=== PATIENT | male | born 1950 | race Caucasian/White ===

== ENCOUNTER 2021-02-05 08:00 | Inpatient (IN) | payer OTHER ==
[~2021-02-05] VITALS: Ht 172.7 cm; Wt 103.9 kg
[2021-02-05 08:30] LABS: Hematocrit 60.1 % (37.0-53.0); Hemoglobin 18.8 g/dL (13.5-17.5); Mean Corpuscular HGB 31.1 pg (26.0-34.0); Mean Corpuscular HGB Conc 31.3 g/dL (31.5-36.5); Mean Corpuscular Volume 100 fL (80-100); Mean Platelet Volume 11.6 fL (9.1-12.4); Platelet Count 271 K/mm3 (150-400); RDW Coefficient Variation 13.3 % (11.7-14.2); RDW Standard Deviation 49.6 fL (35.1-46.3); Red Blood Cell Count 6.04 M/mm3 (4.30-5.90); White Blood Cell Count 9.73 K/mm3 (4.00-11.30)
[2021-02-05] MEDS ORDERED: ALBU90OI INH (08:52)
[2021-02-05] MEDS ORDERED: ELIQUIS5 M2 PO (08:53)
[2021-02-05] MEDS ORDERED: ERGO400 PO (08:53)
[2021-02-05] MEDS ORDERED: GUAI600T33 PO (08:54)
[2021-02-05] MEDS ORDERED: JARDIANCE25 MG PO (08:54)
[2021-02-05] MEDS ORDERED: Lisinopril-Hct1 EAC4 PO (08:55)
[2021-02-05] MEDS ORDERED: METF500 PO (08:55)
[2021-02-05] MEDS ORDERED: METO25ER PO (08:56)
[2021-02-05 08:57] LABS: Alanine Aminotransfer (ALT/SGP 22 U/L (12-78); Albumin, Blood 3.3 g/dL (3.4-5.0); Albumin/Globulin Ratio 0.6 (0.8-1.8); Alk Phos 67 U/L (50-136); Anion Gap 6 mmol/L (6-16); Aspartate Aminotrans (AST/SGOT 17 U/L (12-37); Bilirubin, Total 0.6 mg/dL (0.1-1.0); Blood Urea Nitrogen 28 mg/dL (8-24); Bun/Creatinine Ratio 33.2 (12.0-20.0); CO2, Blood 31 mmol/L (21-32); Calcium, Blood 9.8 mg/dL (8.5-10.1); Chloride, Blood 97 mmol/L (98-108); Creatinine, Blood 0.84 mg/dL (0.60-1.20); Globulin, Blood 5.1 g/dL (2.2-4.0); Glomerular Filtration Rate >60 (60-); Glucose, Blood 210 mg/dL (70-99); Potassium, Blood 4.3 mmol/L (3.5-5.5); Sodium, Blood 134 mmol/L (136-145); Total Protein, Blood 8.4 g/dL (6.4-8.2); Troponin I <0.015 ng/mL (0.000-0.040)
[2021-02-05] MEDS ORDERED: DULERA 100 MCG/13 GM INH (08:57)
[2021-02-05] MEDS ORDERED: STRIVERDI RESPIM4 G1 INH (08:58)
[2021-02-05] MEDS ORDERED: ZOCOR20 MG PO (08:59)
[2021-02-05 09:04] LABS: BAND PERCENT MAN 13 % (0-8); BASOPHILS PERCENT MAN 0 % (0-2); EOSINOPHILS PERCENT MAN 0 % (0-6); LYMPHOCYTES ABSOLUTE MAN 1.45 K/mm3 (0.84-5.20); LYMPHOCYTES PERCENT MAN 15 % (21-46); MONOCYTES ABSOLUTE MAN 1.07 K/mm3 (0.16-1.47); MONOCYTES PERCENT MAN 11 % (4-13); SEG NEUTROPHILS PERCENT MAN 61 % (41-73); TOTAL CELLS COUNTED 100
[2021-02-05 09:16] LABS: PCO2 Arterial 99.2 mmHg (35-45); PO2 Arterial 80.9 mmHg (80-100); pH Blood Arterial 7.19 (7.35-7.45)
[2021-02-05 12:21] LABS: Source, Urine Catheter
[2021-02-05 12:36] LABS: PO2 Arterial 93.2 mmHg (80-100)
[2021-02-05 12:38] LABS: PCO2 Arterial 102 mmHg (35-45); pH Blood Arterial 7.13 (7.35-7.45)
[2021-02-05 12:42] LABS: Appearance, Urine Clear (Clear); Bilirubin, Urine Neg (Neg); Blood, Urine 2+ (Neg); Color, Urine Yellow (P-Yellow); Glucose Qualitative, Urine 4+ (Neg); Ketones, Urine Neg (Neg); Leukocyte Esterase, Urine Neg (Neg); Nitrite, Urine Neg (Neg); Protein, Urine 3+ (Neg); Urobilinogen, Urine NORM (Normal)
[2021-02-05 13:15] LABS: U Amphetamine Screen Not Detected; U Barbituate Screen Not Detected; U Benzodiazapine Screen Not Detected; U Buprenorphine Screen Not Detected; U Cannabinoids Screen Not Detected; U Cocaine Screen Not Detected; U Methadone Screen Not Detected; U Methamphetamine Screen Not Detected; U Opiates Screen Not Detected; U Oxycodone Screen Not Detected; U Phencyclidine Screen Not Detected; U Propoxyphene Screen Not Detected
[2021-02-05 13:19] LABS: White Blood Cells, Urine 0-2 /hpf (0-5)
[2021-02-05 13:20] LABS: Bacteria Rare /hpf; Squamous Epithelial Cells Rare /hpf (Few)
--- NOTE | 2021-02-05 13:56 | NUR ---
PT ADMITTED TO ICU FROM ER AT 1148 FOR RESP FAILURE. PT ARRIVED MOANING AND RESTLESS WITH EYES CLOSED. BIPAP ON 07/04, FIO2 90%. PT ABLE TO FOLLOW SIMPLE COMMANDS BUT VERY AGITATED, STATING "I CANT BREATH". LARGE AIR LEAK TO BIPAP MASK. ATIVAN 1MG GIVEN W GOOD RESULTS. MASK REAJUSTED. PT ARRIVED IN AFIB RVR W HEART RATE 110-160. BP STABLE. CARDIZEM GTT PLACED AT 10MG/HR. PT UNABLE TO URINATE. ORDERS OBTAINED FOR BROWNE CATH. 16F BROWNE TEMP PROBE PLACED W/O DIFF, UA SENT. DR STANLEY CONSULTED AND WAS AT BEDSIDE SHORTLY AFTER ADMISSION. PRECEDEX ORDERED AND ON STANDBY; PT HASNT REQUIRED EXTRA SEDATION SINCE ATIVAN. LOPRESSOR 2.5MG IV GIVEN TWICE PER DR STANLEY W SMALL EFFECT. HR 110-130, OCC HIGHER. BP REMAINED STABLE AFTER LOPRESSOR. NITRO PATCH REMOVED PER DR STANLEY. CARDIZEM STOPPED PER DR STANLEY AT 1234. DR STANLEY INCREASED PRESSURE TO 18. DR STANLEY NOTIFIED OF CRITICAL PH AND CO2. VBG TO BE REPEATED AT 1500. STAT ECHO BEING COMPLETED NOW.
--- NOTE | 2021-02-05 14:21 | NUR ---
Echocardiogram completed.
[2021-02-05 15:21] LABS: PCO2 Venous > 105 mmHg (38-42); PO2 Venous 46.9 mmHg (38-42); pH Blood Venous 7.12 (7.34-7.37)
[2021-02-05 15:22] LABS: Base Excess Venous 8.2 mmol/L; Bicarbonate Venous 25.7 mmol/L (24.0-30.0)
[2021-02-05 16:37] LABS: Adenovirus Not Detected (NOT DETECT); Coronavirus 229E Not Detected (NOT DETECT); Coronavirus HKU1 Not Detected (NOT DETECT); Coronavirus NL63 Not Detected (NOT DETECT); Coronavirus OC43 Not Detected (NOT DETECT); Human Metapneumovirus Not Detected (NOT DETECT); Human Rhinovirus/Enterovirus Detected (NOT DETECT); Influenza A/H1 Not Detected (NOT DETECT); SARS-Cov-2 (COVID-19), BioFire Not Detected (NOT DETECT)
[2021-02-05 16:38] LABS: Bordetella pertussis Not Detected (NOT DETECT); Chlamydophila pneumoniae Not Detected (NOT DETECT); Influenza A/2009-H1 Not Detected (NOT DETECT); Influenza A/H3 Not Detected (NOT DETECT); Influenza B Not Detected (NOT DETECT); Mycoplasma pneumoniae Not Detected (NOT DETECT); Parainfluenza Virus 1 Not Detected (NOT DETECT); Parainfluenza Virus 2 Not Detected (NOT DETECT); Parainfluenza Virus 3 Not Detected (NOT DETECT); Parainfluenza Virus 4 Not Detected (NOT DETECT); Respiratory Syncytial Virus Not Detected (NOT DETECT)
--- NOTE | 2021-02-05 17:48 | NUR ---
1500 VBG W CRITICAL PH OF 7.12. PT INTUBATED BY DR STANLEY AT 1538, 8.0 26 AT LOWER LIP. ETOMIDATE AND PARKER USED TO INTUBATE. PT'S PRESSURE DROPPED AFTER INTUBATION, NS BOLUS STARTED ALONG WITH A PUSH OF PHENYLEPHRINE 50MCG GIVEN AT 1546 FOLLOWED BY 100MCG AT [address] STANLEY. A SECOND BOLUS OF NS WAS STARTED AT 1640. FLUIDS TO BE TKO AFTER BOLUS COMPLETE. A SECOND DOSE OF PARKER 20 WAS GIVEN POST INTUBATION FOR ASYNCHRONY W VENT PER DR STANLEY. PROPOFOL WAS STARTED AT 20MCG AT 1616 FOR SAME ISSUE. LEVOPHED WAS STARTED AT 1601 AND QUICKLY TITRATED UP TO 15MCG FOR MAP <65. LEVOPHED NOW AT 17MCG. VASOPRESSIN STARTED AT 0.04UNITS. AMIO BOULUS FOLLOWED BY GTT STARTED FOR AFIB W RATE UP TO 165. AMIO NOW AT 1MG/MIN. DR STANLEY STARTED A CENTRAL LINE AT 1645. OG PLACED. CHEST XRAY CONFIRMED ETT AND OG PLACEMENT. OG PLACED TO LIS FOR DISTENSION. PT'S BROUGHT IN AND WAS UPDATED. NEOSYNEPHRINE ORDERED AND IS AVAILABLE BUT HAS NOT BEEN STARTED.
--- NOTE | 2021-02-05 19:00 | NUR ---
ASSUMED CARE OF PT, BEDSIDE REPORT RECEIVED. PT IS NOTED INTUBATED AND SEDATED, VENT SETTINGS ARE AC/PC 16/24, FIO2 100%, PEEP 5.0, ETT 8.0 26 AT THE LIP, LUNGS HAVE CRACKLES AUDIBLE THROUGHOUT WITH DIM BASES BILAT, COPIOUS THICK CLANCY SPUTUM HAS BEEN SUCTIONED FROM ETT, SATS ARE NOTED 100%, RESP RATE 16/MIN, TIDAL VOLUMES MID TO UPPER 300S AT THIS TIME, PER RT, REPEAT VBG IS ORDERED FOR 1999. AFIB/AFLUTTER NOTED ON MONITOR RATES UP TO 130S, AMIODARONE GTT IS NOTED AT 1 MG/MIN, PRESSURES SOFT, MAP MAINTAINING WITH LEVOPHED AT 20 MCG/MIN AND VASOPRESSIN AT 0.04 UNITS/MIN, PROPOFOL AT 20 MCG/KG/MIN, PERIPHERAL PULSES ARE FAINT, CAP REFILL DELAYED, NO EDEMA NOTED AT THIS TIME. ABD DISTENDED, HYPOACTIVE BOWEL TONES X 4 QUADRANTS, SOFT TO PALPATION, OG IN PLACE TO LOW INTERMITTENT SUCTION, SCANT AMOUNTS OF CLEAR GREEN IN SUCTION TUBING, NONE NOTED IN CANNISTER AT THIS TIME. TEMP PROBE BROWNE IN PLACE DRAINING CLEAR DARK YELLOW URINE TO GRAVITY. CENTRAL LINE ACCESS TO RIGHT GROIN, DRESSING CDI, SITE WNL, PERIPHERAL ACCESS TO LEFT HAND AND RIGHT AC, SITES WNL, DRESSINGS CDI, ALL VASCULAR ACCESS FLUSHES WELL AT THIS TIME.
[2021-02-05 22:35] LABS: Base Excess Venous 4.6 mmol/L; Bicarbonate Venous 24.5 mmol/L (24.0-30.0); PCO2 Venous 93.2 mmHg (38-42); PO2 Venous 58.5 mmHg (38-42); pH Blood Venous 7.16 (7.34-7.37)
[2021-02-06 04:07] LABS: BASOPHILS ABSOLUTE AUTO 0.09 K/mm3 (0.00-0.23); BASOPHILS PERCENT AUTO 1 % (0-2); Hematocrit 53.7 % (37.0-53.0); Hemoglobin 16.6 g/dL (13.5-17.5); LYMPHOCYTES ABSOLUTE AUTO 0.73 K/mm3 (0.84-5.20); LYMPHOCYTES PERCENT AUTO 6 % (21-46); MONOCYTES ABSOLUTE AUTO 1.43 K/mm3 (0.16-1.47); MONOCYTES PERCENT AUTO 12 % (4-13); Mean Corpuscular HGB 30.9 pg (26.0-34.0); Mean Corpuscular HGB Conc 30.9 g/dL (31.5-36.5); Mean Corpuscular Volume 100 fL (80-100); Mean Platelet Volume 11.6 fL (9.1-12.4); Platelet Count 269 K/mm3 (150-400); RDW Coefficient Variation 13.2 % (11.7-14.2); RDW Standard Deviation 49.3 fL (35.1-46.3); Red Blood Cell Count 5.38 M/mm3 (4.30-5.90); White Blood Cell Count 11.78 K/mm3 (4.00-11.30)
[2021-02-06 04:08] LABS: EOSINOPHILS PERCENT AUTO 0 % (0-6); IMMATURE GRAN ABSOLUTE AUTO 0.12 K/mm3 (0.00-0.10); IMMATURE GRAN PERCENT AUTO 1 % (0-1); NEUTROPHILS ABSOLUTE AUTO 9.41 K/mm3 (1.96-9.15); NEUTROPHILS PERCENT AUTO 80 % (41-73)
[2021-02-06 04:31] LABS: Alanine Aminotransfer (ALT/SGP 21 U/L (12-78); Albumin, Blood 2.5 g/dL (3.4-5.0); Albumin/Globulin Ratio 0.6 (0.8-1.8); Alk Phos 54 U/L (50-136); Anion Gap 6 mmol/L (6-16); Aspartate Aminotrans (AST/SGOT 9 U/L (12-37); Bilirubin, Total 0.4 mg/dL (0.1-1.0); Blood Urea Nitrogen 34 mg/dL (8-24); Bun/Creatinine Ratio 34.1 (12.0-20.0); CO2, Blood 32 mmol/L (21-32); Calcium, Blood 8.4 mg/dL (8.5-10.1); Chloride, Blood 101 mmol/L (98-108); Globulin, Blood 4.2 g/dL (2.2-4.0); Glomerular Filtration Rate >60 (60-); Glucose, Blood 229 mg/dL (70-99); Magnesium, Blood 2.5 mg/dL (1.6-2.4); Phosphorus, Blood 3.9 mg/dL (2.5-4.9); Potassium, Blood 4.5 mmol/L (3.5-5.5); Sodium, Blood 139 mmol/L (136-145); Total Protein, Blood 6.7 g/dL (6.4-8.2)
--- NOTE | 2021-02-06 06:41 | NUR ---
PT REMAINS SEDATED AND INTUBATED, FIO2 TITRATED DOWN TO 60% THIS SHIFT VENT SETTINGS OTHERWISE REMAIN UNCHANGED FROM HS ASSESSMENT. LUNGS CONTINUE TO HAVE CRACKLES THROUGHOUT, COPIOUS SECRETIONS CONTINUE FROM ETT. SATS MAINTAINING UPPER 90S AT THIS TIME, RESP RATE 16. PRESSOR REQUIREMENTS INITIALLY INCREASED THIS SHIFT REQUIRING ADDITION OF MARY GRACE-SYNEPHRINE AT 20 MCG/MIN TO LEVOPHED 20 MCG/MIN AND VASOPRESSIN 0.04 UNITS/MIN, SBP INCREASED TO 110-120S AND FIRST ATTEMPT TO TITRATE MARY GRACE-SYNEPHRINE DOWN TO 10 MCG/MIN DROPPED PRESSURE TO 60S SYSTOLIC, DISCUSSED WITH DR STANLEY AND OK TO RUN SBP 110S THIS SHIFT. WAS ABLE TO TITRATE MARY GRACE TO OFF AND LEVOPHED DOWN TO 14 MCG/MIN THIS SHIFT WITH PRESSURES MAINTAINING OF THIS TIME. PT OPENED EYES AND SAT UP IN BED PULLING HARD AGAINST WRIST RESTRAINTS AND REACHING FOR ETT NEAR 0600 THIS AM AND PROPOFOL WAS INCREASED TO 40 MCG/KG/MIN. AMIODARONE GTT DECREASED TO 0.5 MG/MIN AND INFUSION PUMP PROGRAMMED FOR 18 HOURS RATE HAS IMPROVED TO 90S OF THIS TIME. ABD REMAINS DISTENDED, HYPOACTIVE BOWEL TONES CONTINUE, OG TO LIS WITH SCANT AMOUNT OF GREEN LIQUID DRAINAGE IN CANNISTER. TEMP PROBE BROWNE REMAINS IN PLACE DRAINING CLEAR DARK YELLOW URINE TO GRAVITY.
[2021-02-06 08:15] LABS: Base Excess Venous 9.1 mmol/L; Bicarbonate Venous 29.3 mmol/L (24.0-30.0); PCO2 Venous 73.8 mmHg (38-42); PO2 Venous 62.3 mmHg (38-42); pH Blood Venous 7.29 (7.34-7.37)
--- NOTE | 2021-02-06 10:46 | NUR ---
CARE ASSUMED AT 0700. PT SEDATED ON PROPOFOL AT 40MCG FOR MECH VENT. COPIOUS AMTS OF WHITE THICK SPUTUM SUCTIONED FROM ETT. BICARB GTT AT 50CC/HR, LEVOPHED AT 14MCG, TITRATED DOWN TO 10MCG. MAP >65. VASOPRESSIN INFUSING. NEOSYNEPHRINE HAS BEEN ON STANDBY. AMIO INFUSING AT 05MG/MIN. PT IN AFIB W RVR, RATE SLOWER THAN YESTERDAY AT 110-130. TOPROL XL HELD IT CAN NOT BE CRUSHED AND PT IS ON PRESSORS; WILL DISCUSS W . LACTIC ACID 2.8 AND GRAM + BACILLI RESULTS GIVEN TO DR DALTON. PT'S GIVEN UPDATE OVER PHONE.
--- NOTE | 2021-02-06 11:13 | NUR ---
DR STANLEY IN TO SEE PT. BICARB GTT DC'D. FIO2 AT 45%, VASOPRESSIN PLACED ON STANDBY. TOPROL XL TO BE DC'D.
--- NOTE | 2021-02-06 12:24 | NUR ---
PT WOKE UP VERY AGITATED, UNABLE TO CALM OR REDIRECT. PT PULLING TOWARDS ETT STRONGLY AND STACKING ON VENT, HR INCREASED TO 150, BP DROPPED TO 54/43. VASOPRESSIN RESTARTED, LEVOPHED INCREASED TO 16MCG. FENT 100MCG GIVEN.
--- NOTE | 2021-02-06 13:06 | NUR ---
DR STANLEY UPDATED. LEVOPHED DECREASED TO 10MCG.
--- NOTE | 2021-02-06 13:41 | NUR ---
VHP TUBE FEEDING STARTED AT 25CC/HR, WHICH IS GOAL RATE. VASOPRESSIN ON STANDBY, LEVOPHED AT 10MCG. HR HAS DECREASED TO 90-130.
--- NOTE | 2021-02-06 14:54 | NUR ---
PT'S (S/O >30YEARS) AT BEDSIDE AND UPDATED BY MYSELF AND BY DR STANLEY. LEVOPHED INCREASED TO 12MCG.
[2021-02-06 16:10] LABS: Vancomycin, Trough 13.1 ug/mL (5.0-10.0)
--- NOTE | 2021-02-06 16:36 | NUR ---
METOPROLOL 12.5MG GIVEN PT FOR HEART RATE 130-160. LEVOPHED AT 12MCG, MAP >65. AMIO GTT COMPLETE AND STOPPED PER DR STANLEY. FENTANYL GIVEN FOR AGITATION, PULLING TOWARD ETT.
--- NOTE | 2021-02-06 19:15 | NUR ---
ASSUMED CARE OF PT, BEDSIDE REPORT RECEIVED. GTTS REVIEWED WITH OFFGOING RN, LEVOPHED AT 10 MCG/MIN, PROPOFOL AT 50 MCG/KG/MIN, AND NS @ TKO, VASOPRESSIN AND MARY GRACE-SYNEPHRINE HAVE BEEN ON STANDBY FOR MOST OF THE DAY PER OFFGOING RN. VENT SETTINGS ARE NOW NOTED AC/PC 16, 20, FIO2 45%, PEEP 5, ETT CONTINUES 26 AT THE LIP, SATS ARE 95% AT THIS TIME, RESP RATE 16/MIN TIDAL VOLUMES ARE MID TO UPPER 400S CURRENTLY. AFIB CONTINUES ON MONITOR, OCCASIONAL PVC IS NOTED, PRESSURES MAINTAINING MAP WITH PREV LISTED PRESSORS, SKIN IS NOW PINK AND WARM, CAP REFILL 4 SECONDS AT THIS TIME, PULSES ARE FAINTLY PALPABLE X 4. ABD DISTENDED, VITAL HIGH PROTEIN INFUSING AT 25 ML/HR WHICH IS GOAL RATE, RESIDUAL IS LESS THAN 5 ML AT THIS TIME, HYPOACTIVE BOWEL TONES CONTINUE, NO GRIMACING WITH PALPATION. TEMP PROBE BROWNE REMAINS IN PLACE DRAINING CLEAR DARK YELLOW URINE TO GRAVITY. CENTRAL LINE REMAINS IN PLACE TO RIGHT GROIN, DRESSING CDI, SITE WNL. PERIPHERAL ACCESS CONTINUES TO RIGHT AC AND LEFT HAND, SITES WNL, DRESSINGS CDI. FLUSH WELL.
--- NOTE | 2021-02-06 22:58 | NUR ---
CALL PLACED TO DR STANLEY DUE TO PT'S HEART RATE TRENDING UP, DISCUSSED PRESSOR REQUIREMENTS AND VITAL SIGNS AT THIS TIME. ORDERS RECEIVED. WILL MONITOR.
[2021-02-07 04:25] LABS: Base Excess Venous 13.1 mmol/L; Bicarbonate Venous 34.1 mmol/L (24.0-30.0); PO2 Venous 89.7 mmHg (38-42); pH Blood Venous 7.41 (7.34-7.37)
[2021-02-07 04:26] LABS: BASOPHILS ABSOLUTE AUTO 0.03 K/mm3 (0.00-0.23); BASOPHILS PERCENT AUTO 0 % (0-2); EOSINOPHILS PERCENT AUTO 0 % (0-6); Hematocrit 48.6 % (37.0-53.0); Hemoglobin 15.5 g/dL (13.5-17.5); IMMATURE GRAN ABSOLUTE AUTO 0.16 K/mm3 (0.00-0.10); IMMATURE GRAN PERCENT AUTO 1 % (0-1); LYMPHOCYTES ABSOLUTE AUTO 0.79 K/mm3 (0.84-5.20); LYMPHOCYTES PERCENT AUTO 7 % (21-46); MONOCYTES ABSOLUTE AUTO 0.79 K/mm3 (0.16-1.47); MONOCYTES PERCENT AUTO 7 % (4-13); Mean Corpuscular HGB 31.5 pg (26.0-34.0); Mean Corpuscular HGB Conc 31.9 g/dL (31.5-36.5); Mean Corpuscular Volume 99 fL (80-100); Mean Platelet Volume 11.6 fL (9.1-12.4); NEUTROPHILS ABSOLUTE AUTO 9.73 K/mm3 (1.96-9.15); NEUTROPHILS PERCENT AUTO 85 % (41-73); NRBC ABSOLUTE 0.02 K/mm3 (0.00-0.02); NRBC Auto 0.2 /100 WBC (0.0-0.2); Platelet Count 221 K/mm3 (150-400); RDW Coefficient Variation 13.5 % (11.7-14.2); RDW Standard Deviation 49.4 fL (35.1-46.3); Red Blood Cell Count 4.92 M/mm3 (4.30-5.90)
[2021-02-07 04:45] LABS: Anion Gap 2 mmol/L (6-16); Blood Urea Nitrogen 33 mg/dL (8-24); CO2, Blood 35 mmol/L (21-32); Calcium, Blood 8.6 mg/dL (8.5-10.1); Chloride, Blood 103 mmol/L (98-108); Creatinine, Blood 0.77 mg/dL (0.60-1.20); Glomerular Filtration Rate >60 (60-); Glucose, Blood 224 mg/dL (70-99); Magnesium, Blood 2.8 mg/dL (1.6-2.4); Potassium, Blood 4.3 mmol/L (3.5-5.5); Sodium, Blood 140 mmol/L (136-145)
--- NOTE | 2021-02-07 06:14 | NUR ---
PT APPEARS TO REST QUIETLY WHEN UNDISTURBED THIS SHIFT, DOES ROUSE TO VERBAL STIMULI, DOES ANSWER YES/NO QUESTIONS. VENT SETTINGS REMAIN UNCHANGED AND PT CONTINUES TO MAINTAIN OXYGEN SATS LOW TO MID 90S, RESP RATE AT REST REMAINS 16/MIN WITH TIDAL VOLUMES 400S. LUNGS CONTINUE WITH CRACKLES AND INTERMITTENT WHEEZES. HE CONTINUES IN AFIB/AFLUTTER THROUGHOUT NOC WITH RATES UP TO 140S, DISCUSSED WITH DR STANLEY EARLY IN THE SHIFT AND OBTAINED ORDERS FOR ONE TIME DOSE OF METOPROLOL VIA OG TUBE WELL METOPROLOL 2.5 MG IV Q 4HOURS PRN, RATES ARE NOTED TO IMPROVE FOR BRIEF DURATION FOLLOWING EACH DOSE HOWEVER DO NOT MAINTAIN, THIS IS DISCUSSED WITH DR STANLEY THIS AM AND ORDERS OBTAINED TO RESUME AMIODARONE GTT AT 0.5 MG/MIN, PHARMACY CONTACTED FOR NEW BAG. MINIMAL RESIDUALS THROUGHOUT SHIFT, BOWEL TONES IMPROVED HOWEVER REMAIN HYPOACTIVE. GOOD URINE OUTPUT VIA TEMP PROBE BROWNE. PRESSOR REQUIREMENTS IMPROVED AND LEVOPHED HAS BEEN TITRATED DOWN TO 2 MCG/MIN, PROPOFOL TITRATED UP TO 60 MCG/KG/MIN AT 0545 THIS AM DUE TO CONCERN FOR POSSIBLE ANXIETY COMPONENT CONTRIBUTING TO ELEVATED HEART RATE, APPROXIMATELY 10 BEATS/MIN IMPROVEMENT NOTED.
--- NOTE | 2021-02-07 07:18 | NUR ---
ASSUMED CARE: PT INTUBATED WITH SETTINGS AC 16/PC 20/5/45%. AMIODORONE GTT STARTED AT THE END OF SUBWAY GUARD WITH HR CURRENTLY IN 130S. LEVOPHED AT 2 MCG/KG. PROPOFOL FOR SEDATION AT 60MCG/KG AT THIS TIME. RT AT BEDSIDE FOR BREATHING TX. OG WITH TF RUNNING AND BROWNE IN PLACE PUTTING OUT CLEAR YELLOW URINE. NO ACUTE NEEDS AT THIS TIME
--- NOTE | 2021-02-07 09:58 | NUR ---
AMIODORONE WAS STARTED AT 0700 THIS AM AND DOSE OF PRN METOPROLOL WAS GIVEN AT 0930. PT'S HR STILL IN 130S-150S. SPOKE WITH DR STANLEY WHO WILL EVALUATE TO DETERMINE FURTHER INTERVENTION
--- NOTE | 2021-02-07 10:30 | NUR ---
PROPOFOL DOWN TO 30MCG/KG. PT ABLE TO OPEN EYES AND ATTEMPTING TO FOLLOW DIRECTIONS. BEGAN GETTING AGITATED AND CHEWING ET TUBE. SEDATION INCREASED TO 40MCG/KG
--- NOTE | 2021-02-07 10:30 | NUR ---
DR STANLEY AT BEDSIDE AND ORDERED AMIODORONE OFF AND TO GIVE IV PUSH OF METOPROLOL. DR WILL ENTER FURTHER ORDERS FOR PO COVERAGE FOR HR. WILL MONITOR CLOSELY
--- NOTE | 2021-02-07 12:34 | NUR ---
DIETITIAN SUGGESTED STARTING PRECEDEX TO TITRATE OFF OF PROPOFOL DUE TO INCREASED CALORIC INTAKE FOR PT. DISCUSSED WITH DR STANLEY TO SEE IF WE WANTED TO CONSIDER THIS. DR STANLEY STATES TO ADD PRECEDEX TO SEE IF WE CAN TITRATE PROPOFOL DOWN. AWAITING MED FROM PHARMACY
--- NOTE | 2021-02-07 18:32 | NUR ---
SHIFT SUMMARY: PT REMAINS INTUBATED WITH SETTINGS UNCHANGED. SEDATED WITH PROPOFOL AT 30MCG AND PRECEDEX AT 0.6MCG. LEVOPHED OFF, PO METOPROLOL WITH HR IN 90S IN AFLUTTER. SON CAME TO SEE PT AND WISHES TO BE HERE WHEN PT IS EXTUBATED. PHONE NUMBER IN CHART. NO ACUTE NEEDS OR CONCERNS AT THIS TIME.
--- NOTE | 2021-02-07 20:00 | NUR ---
ASSESSMENT/ASSUMED CARE PT INTUBATED AND ON [facility] VENT. SEDATED WITH PROPOFOL AND PRECEDEX. PT PULLS AGAINST RESTRAINTS AND MOVES HEAD WITH MOUTH CARE AND REPOSITIONING BUT DOES NOT FOLLOW INSTRUCTIONS. LUNGS COARSE AND DECREASED. VENT SETTINGS AC/PC 16/20 PEEP 5 FIO2 45%. SUCTIONED MODERATE AMT THICK CREAM COLORED FLUID VIA ET TUBE. HEART RATE IRREGULAR- AFIB/AFLUTTER IN THE 90-100'S. BP STABLE WITH MAP GREATER THAN 65. BT+ HYPOACTIVE OG WITH TUBE FEED VITAL HP AT GOAL RATE 25 ML/HR, WATER 30 ML Q4HRS. RESIDUAL ZERO. PIV 20G TO RIGHT AC AND 20G TO LEFT FOREARM SALINE LOCKED, SITES CLEAR. CENTRAL LINE TO RIGHT GROIN DRSG INTACT, SITE CLEAR. PROPOFOL AT 30 MCQ/KG/MIN, PRECEDEX 0.6 MCQ/KG/HR, NS AT 10 ML/HR TIMES 2. LEVOPHED ON STANDBY. BROWNE CATH PATENT DRAINING CLEAR YELLOW URINE. ICE PACKS TO GROIN, UNDER ARMS AND BEHIND NECK FOR TEMP 101.7. TYLENOL GIVEN VIA OG WITH HS MEDS.
--- NOTE | 2021-02-07 22:22 | NUR ---
TEMP CALL TO DR STANLEY REGARDING TEMP 101.5 AFTER TYLENOL GIVEN, BLANKETS REMOVED AND ICE TO GROIN, UNDER ARMS AND BEHIND NECK. ORDER FOR MOTRIN 600 MG PT Q6HR PRN FOR TEMP OVER 101.0 RECEIVED.
[2021-02-08 04:42] LABS: BASOPHILS ABSOLUTE AUTO 0.06 K/mm3 (0.00-0.23); BASOPHILS PERCENT AUTO 0 % (0-2); EOSINOPHILS PERCENT AUTO 0 % (0-6); Hematocrit 50.4 % (37.0-53.0); Hemoglobin 15.5 g/dL (13.5-17.5); IMMATURE GRAN ABSOLUTE AUTO 0.26 K/mm3 (0.00-0.10); IMMATURE GRAN PERCENT AUTO 2 % (0-1); LYMPHOCYTES ABSOLUTE AUTO 1.24 K/mm3 (0.84-5.20); LYMPHOCYTES PERCENT AUTO 9 % (21-46); MONOCYTES ABSOLUTE AUTO 0.72 K/mm3 (0.16-1.47); MONOCYTES PERCENT AUTO 5 % (4-13); Mean Corpuscular HGB 30.7 pg (26.0-34.0); Mean Corpuscular HGB Conc 30.8 g/dL (31.5-36.5); Mean Corpuscular Volume 100 fL (80-100); Mean Platelet Volume 11.6 fL (9.1-12.4); NEUTROPHILS ABSOLUTE AUTO 11.09 K/mm3 (1.96-9.15); NEUTROPHILS PERCENT AUTO 83 % (41-73); Platelet Count 198 K/mm3 (150-400); RDW Coefficient Variation 13.6 % (11.7-14.2); RDW Standard Deviation 50.3 fL (35.1-46.3); Red Blood Cell Count 5.05 M/mm3 (4.30-5.90); White Blood Cell Count 13.37 K/mm3 (4.00-11.30)
[2021-02-08 05:13] LABS: Albumin, Blood 2.3 g/dL (3.4-5.0); Anion Gap 1 mmol/L (6-16); Blood Urea Nitrogen 43 mg/dL (8-24); Bun/Creatinine Ratio 49.9 (12.0-20.0); CO2, Blood 37 mmol/L (21-32); Calcium, Blood 8.6 mg/dL (8.5-10.1); Chloride, Blood 106 mmol/L (98-108); Creatinine, Blood 0.86 mg/dL (0.60-1.20); Glomerular Filtration Rate >60 (60-); Glucose, Blood 242 mg/dL (70-99); Magnesium, Blood 3.1 mg/dL (1.6-2.4); Phosphorus, Blood 3.7 mg/dL (2.5-4.9); Potassium, Blood 4.8 mmol/L (3.5-5.5); Sodium, Blood 144 mmol/L (136-145); Vancomycin, Trough 13.1 ug/mL (5.0-10.0)
--- NOTE | 2021-02-08 06:00 | NUR ---
SHIFT SUMMARY PT CONT INTUBATED AND ON [facility] VENT. CONT SEDATED WITH PROPOFOL AND PRECEDEX. PT AWAKENS TO TURNING AND ORAL CARE, NOT FOLLOWING INSTRUCTIONS. HEART RATE CONT IRREGULAR, AFIB/AFLUTTER IN THE 80'S. BP STABLE OFF LEVOPHED. TUBE FEED AT GOAL. BILAT SOFT WRIST RESTRAINTS ON. BED BATH DONE AND PT TURNED Q2HRS. NO ACUTE CHANGE, REPORT TO ON COMING NURSE
--- NOTE | 2021-02-08 12:18 | NUR ---
REASSESSMENT PT REMAINS INTUBATED AND SEDATED. HE HAD A WEANING TRIAL THIS MORNING AND HE TOELRATED SPONTANEOUS MODE AND REDUCED SEDATION FOR 2 HOURS. AFTER 2 HOURS PT'S RR WENT UP TO THE UPPER 30S AND HIS HR JUMPED TO THE 150S. RESPIRATORY CALLED AND SWITCHED PT BACK TO AC MODE. PRN DOSE OF METOPOROLOL GIVEN TO GET HR BACK DOWN. PT WAS FOLLOWING COMMANDS WHILE SEDATION WAS DECREASED, BUT APPROPRIATELY ANXIOUS. LUNGS ARE WHEEZY THIS AFTERNOON, WORSE ON THE R. AFIB WITH RATE IN THE 90-LOW 100S. BP STABLE. FEVER IS SLOWLY CLIMBING. DR. STANLEY GAVE ORDERS TO TITRATE OFF PRECEDEX TO SEE IF THAT HELPS. BROWNE WITH CL YELLOW URINE. SPOKE WITH PT'S CONY THIS MORNING AND PROVIDED UPDATE. CONTINUING TO MONITOR.
--- NOTE | 2021-02-08 18:34 | NUR ---
SHIFT SUMMARY PT REMAINED INTUBATED TODAY AFTER FIALING HIS WEAN AFTER 2 HOURS. HIS LUNGS ARE COARSE AND WHEEZY AT TIMES. AFIB, RATE IN THE 1TEENS SINCE PRECEDEX WAS TITRATED OFF. HIS FEVER IMPROVED BRIEFLY AFTER PRECEDEX TURNED OFF BUT IS CURRENTLY AT 100.2F. TOLERATING TUBE FEEDS WITH ONLY 20ML RESIDUAL THIS EVENING. PT'S CAME BY THIS AFTERNOON AND WAS UPDATED. CONTINUING TO MONITOR.
--- NOTE | 2021-02-08 20:10 | NUR ---
ASSESSMENT/ASSUMED CARE PT CONT INTUBATED AND [facility]. PT SEDATED WITH PROPOFOL AT 40 MCQ/KG/MIN VIA CENTRAL LINE TO RIGHT GROIN. VENT SETTINGS AC/PC 16/20 PEEP 5 FIO2 45%. LUNGS COARSE AND DECREASED IN THE BASES. RT SUCTIONED SMALL AMT YELLOW FLUID VIA ET TUBE. HEART RATE IRREGULAR, AFIB/AFLUTTER. AT 192 PT WENT INTO AFIB WITH RVR WITH RATE 130-160'S. PT MED WITH LOPRESSOR 2.5 IV AT 1936, BUT HEART RATE CONT ELEVATED. CALL TO DR STANLEY AT 1999 AND RECEIVED ADDITIONAL ORDERS FOR LOPRESSOR 5 MG IV AND LOPRESSOR 12.5 PT BOTH ONE TIME ORDRES, GIVEN AT 2006. HEART RATE CONT ELEVATED BUT DOWN TO 120-130'S. TEMP 100.4 PT MED WITH TYLENOL PT AND ICE PACKS APPLIED BEHIND NECK, UNDER ARMS AND IN GROIN. PT MED WITH FENTANYL 50 MCQ FOR SEDATION ADJUNCT. BT+ HYPOACTIVE. TUBE FEED VIA OG AT GOAL RATE OF 25 ML/HR WITH WATER 30 ML Q4HR. RESIDUAL 20 ML REFED. BROWNE CATH PATENT DRAINING YELLOW URINE. OARL CARE DONE AND PT REPOSITIONED.
--- NOTE | 2021-02-09 00:07 | NUR ---
REASSESSMENT BLOOD SURGAR 223, 6 UNITS REGULAR INSULIN GIVEN. TALKED WITH DR STANLEY REGARDING INCREASING HEART RATE 100-150'S. LOPRESSOR 50MG GIVEN VIA OG. PT MED WITH LOPRESSOR 2.5 MG IV. PT MOVING LEG AND TRYING TO GET OUT OF BED MED WITH FENTANYL 50 MCQ. CONT TO MONITOR HEART RATE AND BP.
[2021-02-09 03:22] LABS: BASOPHILS ABSOLUTE AUTO 0.05 K/mm3 (0.00-0.23); BASOPHILS PERCENT AUTO 0 % (0-2); EOSINOPHILS PERCENT AUTO 0 % (0-6); Hematocrit 51.5 % (37.0-53.0); Hemoglobin 15.8 g/dL (13.5-17.5); IMMATURE GRAN ABSOLUTE AUTO 0.24 K/mm3 (0.00-0.10); IMMATURE GRAN PERCENT AUTO 2 % (0-1); LYMPHOCYTES ABSOLUTE AUTO 0.72 K/mm3 (0.84-5.20); LYMPHOCYTES PERCENT AUTO 6 % (21-46); MONOCYTES ABSOLUTE AUTO 0.76 K/mm3 (0.16-1.47); MONOCYTES PERCENT AUTO 6 % (4-13); Mean Corpuscular HGB 30.6 pg (26.0-34.0); Mean Corpuscular HGB Conc 30.7 g/dL (31.5-36.5); Mean Corpuscular Volume 100 fL (80-100); Mean Platelet Volume 11.1 fL (9.1-12.4); NEUTROPHILS ABSOLUTE AUTO 10.59 K/mm3 (1.96-9.15); NEUTROPHILS PERCENT AUTO 86 % (41-73); Platelet Count 185 K/mm3 (150-400); RDW Coefficient Variation 13.6 % (11.7-14.2); RDW Standard Deviation 50.3 fL (35.1-46.3); Red Blood Cell Count 5.16 M/mm3 (4.30-5.90); White Blood Cell Count 12.36 K/mm3 (4.00-11.30)
[2021-02-09 03:41] LABS: Magnesium, Blood 2.7 mg/dL (1.6-2.4); Phosphorus, Blood 3.4 mg/dL (2.5-4.9)
--- NOTE | 2021-02-09 05:47 | NUR ---
SHIFT SUMMARY PT CONT INTUBATED AND ON [facility] VENT. NO CHANGES TO VENT DURING THE NIGHT. CURRENT SETTINGS AC/PC 16/20 PEEP 5 FIO2 45%. WEANING HELD THIS MORNING DUE TO ELEVATED HEART RATE. PT MED WITH IV LOPRESSOR FOUR TIMES DURING THE NIGHT AND RECEIVED AN EXTRA DOSE OF PT LOPRESSOR. DR STANLEY INCREASED PT LOPRESSOR TO 50 MG Q8HR. PT CONT AFIB/AFLUTTER 90-120'S AT THIS TIME. BP STABLE. TUBE FEED AT GOAL, MIN RESIDUAL DURING THE NIGHT. CENTRAL LINE TO RIGHT GROIN STABLE. PT TURNED Q2HRS. REPORT TO ON COMING NURSE
[2021-02-09 07:46] LABS: Anion Gap 1 mmol/L (6-16); Blood Urea Nitrogen 38 mg/dL (8-24); Bun/Creatinine Ratio 52.9 (12.0-20.0); CO2, Blood 35 mmol/L (21-32); Calcium, Blood 8.8 mg/dL (8.5-10.1); Chloride, Blood 108 mmol/L (98-108); Creatinine, Blood 0.72 mg/dL (0.60-1.20); Glomerular Filtration Rate >60 (60-); Glucose, Blood 211 mg/dL (70-99); Potassium, Blood 4.8 mmol/L (3.5-5.5); Sodium, Blood 144 mmol/L (136-145)
--- NOTE | 2021-02-09 10:07 | NUR ---
ASSUMED CARE BEDSIDE REPORT RECIEVED. PT IS INTUBATED AND SEDATED. VENT SETTINGS PRESSURE CONTROL 20, RATE 16, PEEP 5, FIO2 45%. PT SEDATED WITH PROPOFOL. PROPOFOL DECREASED TO 20 MCG/KG/MIN. PT OPENS EYES TO VERBAL STIMULI. PT WILL SQUEEZE HANDS UPON COMMAND. SHAKES HEAD YES/NO TO QUESTIONS. PT IS ANXIOUS/RESTLESS. HR AFIB, INCREASED TO 140-160'S WITH RESTLESSNESS. OGT IN PLACE WITH TF AT GOAL RATE. BROWNE TEMP PROBE IN PLACE WITH DARK YELLOW URINE OUTPUT NOTED. SBW RESTRAINTS IN PLACE. DR BARFIELD AND DR DALTON AT BEDSIDE. PLAN TO WEAN PT OFF PROPOFOL AND RESTART PRECEDEX. PT DID NOT TOLERATE SBT FOR LONG. PT BACK TO PRESSURE CONTROL AT THIS TIME. PT SPOUSE TREY UPDATED VIA PHONE. VITAL SIGNS STABLE. WILL CONTINUE TO MONITOR.
--- NOTE | 2021-02-09 17:21 | NUR ---
SHIFT SUMMARY NO ACUTE CHANGES THIS SHIFT. PT REMAINS INTUBATED AND SEDATED. PT VENT SETTINGS UNCHANGED. PRESSURE CONTROL 20/5, RR 16, FIO2 40%. PT WITH LARGE AMOUNT OF THICK ORAL AND ETT SECRETIONS THIS SHIFT. PT SEDATED WITH PROPOFOL AT 25 MCG/KG/MIN AND PRECEDEX AT 1.0 MCG/KG/MIN. WHEN PT LESS SEDATED, PT IS ABLE TO FOLLOW SIMPLE COMMANDS AND NOD HEAD YES/NO. VITAL SIGNS STABLE AT THIS TIME. PT REMAINS IN AFIB. PT WITH TEMP UP TO 101.8. PT MED WITH TYLENOL AND MOTRIN. OGT REMAINS IN PLACE WITH TF CHANGED TO PIVIOT 1.5, INFUSING AT 35 ML/HR AT THIS TIME. BROWNE TEMP PROBE REMAINS IN PLACE WITH YELLOW URINE OUTPUT NOTED. SBW RESTRAINTS REMAIN IN PLACE. PT SPOUSE AT BEDSIDE THIS AFTERNOON. UPDATED TO CURRENT CONDITION AND PLAN OF CARE. WILL CONTINUE TO MONITOR AND REPORT OFF TO ONCOMING RN.
--- NOTE | 2021-02-09 22:07 | NUR ---
PT RECEIVED FROM LUNA NAYAK. TEMPERATURE REGISTERING 102.4, TYLENOL GIVEN PER OGT ICE PACKS PLACED ON GROIN, ARMPITS, NECK. ON VENT. AC/PC 16 PEEP 5 40% FIO2 TOLERATING WELL, PROPOFOL AT 25MCG/KG/HR, PRECEDEX @ 1.0, PIVOT TF @ 45ML/HR LUNGS COARSE IN THE BASES WITH EXP.WHEEZE LLL, PAS OFF AT THIS TIME R/T FEVER ABD ROUND FIRM RESIDUAL 180ML. EXTREMITIES COOL TO THE TOUCH, FOREHEAD SWEATY PT LOOKS COMFORTABLE, NO GRIMACE, NO COUGH. HEART RATE 90'S, BP STABLE, SATS >93% RESTRAINTS ON BOTH WRISTS
--- NOTE | 2021-02-10 03:33 | NUR ---
LAVINIA HAS BEEN RESTING QUIETLY T/O THE NIGHT. BETWEEN MIDNOC AND 0200 HE HAD A COUPLE OF EPISODES WHERE HIS O2 SATS WOULD DROP TO THE MID-HI 80'S. HE WAS SUCTIONED AND DID NOT RETURN MUCH. HE WAS GIVEN 100% O2 AND WOULD RETURN TO BASELINE. AFTER A FEW OF THESE EPISODES, I TURNED HIS PROPOFOL UP TO 30MCG/KG AND HE HASN'T HAD ANOTHER.
[2021-02-10 04:48] LABS: BASOPHILS ABSOLUTE AUTO 0.04 K/mm3 (0.00-0.23); BASOPHILS PERCENT AUTO 0 % (0-2); EOSINOPHILS PERCENT AUTO 0 % (0-6); Hematocrit 53.2 % (37.0-53.0); Hemoglobin 16.6 g/dL (13.5-17.5); IMMATURE GRAN ABSOLUTE AUTO 0.22 K/mm3 (0.00-0.10); IMMATURE GRAN PERCENT AUTO 1 % (0-1); LYMPHOCYTES ABSOLUTE AUTO 1.37 K/mm3 (0.84-5.20); LYMPHOCYTES PERCENT AUTO 9 % (21-46); MONOCYTES ABSOLUTE AUTO 0.86 K/mm3 (0.16-1.47); MONOCYTES PERCENT AUTO 6 % (4-13); Mean Corpuscular HGB 30.8 pg (26.0-34.0); Mean Corpuscular HGB Conc 31.2 g/dL (31.5-36.5); Mean Corpuscular Volume 99 fL (80-100); Mean Platelet Volume 11.8 fL (9.1-12.4); NEUTROPHILS ABSOLUTE AUTO 12.76 K/mm3 (1.96-9.15); NEUTROPHILS PERCENT AUTO 84 % (41-73); Platelet Count 171 K/mm3 (150-400); RDW Coefficient Variation 13.6 % (11.7-14.2); RDW Standard Deviation 49.9 fL (35.1-46.3); Red Blood Cell Count 5.39 M/mm3 (4.30-5.90); White Blood Cell Count 15.25 K/mm3 (4.00-11.30)
[2021-02-10 05:05] LABS: Anion Gap 1 mmol/L (6-16); Blood Urea Nitrogen 39 mg/dL (8-24); Bun/Creatinine Ratio 52.6 (12.0-20.0); CO2, Blood 36 mmol/L (21-32); Calcium, Blood 8.3 mg/dL (8.5-10.1); Chloride, Blood 109 mmol/L (98-108); Creatinine, Blood 0.74 mg/dL (0.60-1.20); Glomerular Filtration Rate >60 (60-); Glucose, Blood 279 mg/dL (70-99); Potassium, Blood 4.7 mmol/L (3.5-5.5); Sodium, Blood 146 mmol/L (136-145)
--- NOTE | 2021-02-10 06:16 | NUR ---
LAVINIA HAS BEEN RESTING T/O THE NIGHT. NO CHANGE IN CONDITION. CONTINUES TO BE FEBRILE WITH LITTLE TO NO RELIEF WITH THE TYLENOL OR THE IBUPROFEN. ICE PACKS HAVE BEEN USED T/O THE NIGHT WELL. NO CHANGES TO THE VENT SETTINGS, PROPOFOL CONTINUES AT 30 MCG/KG/MIN AND PRECEDEX AT 1 MCG/KG/HR. TF @ 40ML/HR, BLOOD SUGARS HAVE INCREASED AND HIS AM GLUCOSE WAS 385, COVERED WITH 15UNITS OF REGULAR INSULIN. BROWNE WITH GOOD OUTPUT.
--- NOTE | 2021-02-10 07:30 | NUR ---
ASSUMED CARE BEDSIDE REPORT RECIEVED. PT IS INTUBATED AND SEDATED. VENT SETTINGS PRESSURE CONTROL 20/5, RR 16, FIO2 40%. PT WITH MINIMAL SECRETIONS AT THIS TIME. PT SEDATED WITH PROPOFOL AT 30 MCG/KG/MIN, AND PRECEDEX AT 1.0 MCG/KG/MIN. CENTRAL LINE TO RIGHT FEMORAL SITE C/D/I. OGT IN PLACE WITH TF INFUSING AT GOAL RATE. BROWNE TEMP PROBE IN PLACE WITH YELLOW OUTPUT NOTED. PT WITH 102.[address] SBW RESTRAINTS IN PLACE. VITAL SIGNS STABLE. WILL CONTINUE TO MONITOR.
--- NOTE | 2021-02-10 09:15 | NUR ---
VENT CHANGE DR BARFIELD AT BEDSIDE. DISCUSSED PRECEDEX AND PT PERSISTANT FEVER. PRECEDEX PLACED ON STANDBY. DR BARFIELD PLACED PT ON PRESSURE SUPPORT 15/5, FIO2 40%. RT NOTIFIED OF CHANGES. WILL CONTINUE TO MONITOR.
--- NOTE | 2021-02-10 18:25 | NUR ---
SHIFT SUMMARY NO ACUTE CHANGES THIS SHIFT. PT REMAINS INTUBATED AND SEDATED. PT VENT SETTINGS REMAIN ON PRESSURE SUPPORT 15/5, FIO2 40%. PT HAS TOLERATED PRESSURE SUPPORT WELL THROUGHOUT THE DAY. PT SEDATED WITH PROPOFOL AT 40 MCG/KG/MIN. PRECEDEX DISCONTINUED THIS AM. PT HAS CONTINUED TO HAVE LOW GRADE FEVER, BUT MUCH IMPROVED FROM THIS AM. VITAL SIGNS HAVE REMAINED STABLE. OGT REMAINS IN PLACE WITH TF INFUSING AT GOAL RATE. CENTRAL LINE REMAINS IN PLACE TO RIGHT GROIN. POWERGLIDE STARTED TO WALE. BROWNE TEMP PROBE IN PLACE WITH CLEAR/GREEN TINGED URINE OUTPUT. SBW RESTRAINTS IN PLACE. PT ABLE TO SQUEEZE HANDS UPON COMMAND WHEN SEDATION IS LIGHTENED. PT SPOUSE UPDATED VIA PHONE. WILL CONTINUE TO MONITOR AND REPORT OFF TO ONCOMING RN.
--- NOTE | 2021-02-10 20:02 | NUR ---
PT BEGAN WAKING UP, LOOKING RIGHT AT ME, HEART RATE CLIMBING, PAIN MEDS AND LOPRESSOR GIVEN PER EMAR, PROPOFOL INCREASED TO 45 MCG/KG/MIN. CONTINUING TO OBSERVE AND TREAT.
--- NOTE | 2021-02-10 20:30 | NUR ---
AFTER FENTANYL GIVEN, PT VERY RELAXED, BACK TO SLEEP. VENT MODE CHANGED BACK TO PC 16, PEEP 5, 40%. LOPRESSOR GIVEN AND NOTED THE PG SITE LOOKED TO BE LEAKING, DRESSING CHANGED, HEART RATE IMPROVING. BP REMAINS STABLE.
--- NOTE | 2021-02-11 02:25 | NUR ---
LAVINIA IS WAKING UP MORE, SPONTANEOUSLY. HE ANSWERS YES AND NO QUESTIONS AND REACHES FOR MY HAND. HE IS EASILY REORIENTED AND CALMED. HE FALLS BACK TO SLEEP. DENIES PAIN, DENIES BEING COLD.
[2021-02-11 04:51] LABS: BASOPHILS ABSOLUTE AUTO 0.05 K/mm3 (0.00-0.23); BASOPHILS PERCENT AUTO 0 % (0-2); EOSINOPHILS PERCENT AUTO 0 % (0-6); Hematocrit 52.1 % (37.0-53.0); IMMATURE GRAN ABSOLUTE AUTO 0.23 K/mm3 (0.00-0.10); IMMATURE GRAN PERCENT AUTO 1 % (0-1); LYMPHOCYTES ABSOLUTE AUTO 0.78 K/mm3 (0.84-5.20); LYMPHOCYTES PERCENT AUTO 4 % (21-46); MONOCYTES ABSOLUTE AUTO 0.75 K/mm3 (0.16-1.47); MONOCYTES PERCENT AUTO 4 % (4-13); Mean Corpuscular HGB 30.5 pg (26.0-34.0); Mean Corpuscular HGB Conc 30.7 g/dL (31.5-36.5); Mean Corpuscular Volume 99 fL (80-100); Mean Platelet Volume 11.9 fL (9.1-12.4); NEUTROPHILS PERCENT AUTO 91 % (41-73); Platelet Count 166 K/mm3 (150-400); RDW Coefficient Variation 13.7 % (11.7-14.2); RDW Standard Deviation 50.9 fL (35.1-46.3); Red Blood Cell Count 5.25 M/mm3 (4.30-5.90); White Blood Cell Count 19.31 K/mm3 (4.00-11.30)
[2021-02-11 05:06] LABS: Anion Gap 0 mmol/L (6-16); Blood Urea Nitrogen 35 mg/dL (8-24); Bun/Creatinine Ratio 56.5 (12.0-20.0); CO2, Blood 36 mmol/L (21-32); Calcium, Blood 8.5 mg/dL (8.5-10.1); Chloride, Blood 110 mmol/L (98-108); Creatinine, Blood 0.62 mg/dL (0.60-1.20); Glomerular Filtration Rate >60 (60-); Glucose, Blood 258 mg/dL (70-99); Sodium, Blood 146 mmol/L (136-145)
--- NOTE | 2021-02-11 06:24 | NUR ---
LAVINIA HAS BEEN SLEEPING WELL THE LAST COUPLE OF HOURS, HE WAS UNDISTURBED WITH THE LAST TURN AND POSITION CHANGE. ATTEMPT BY RT TO PUT HIM BACK ON PS 15/5 AND HE WAS NOT BREATHING FAST ENOUGH TO CUE THE MACHINE. SO HE WAS PUT BACK ON AC PC 2O PEEP 5 40%. HE CONTINUES ON PROPOFOL AT 40 MCG/KG, BROWNE TO GRAVITY DRAINAGE WITH GOOD URINE OUTPUT, TUBE FEEDING @ 40ML/HR.
--- NOTE | 2021-02-11 08:15 | NUR ---
ASSUMED CARE BEDSIDE REPORT RECIEVED. PT IS INTUBATED AND SEDATED. VENT SETTINGS INITIALLY PRESSURE CONTROL. PT SWITCHED TO PRESSURE SUPPORT 15/5, FIO2 40% AT THIS TIME. PT SEDATED WITH PROPOFOL AT 40 MCG/KG/MIN. PT AWAKENS TO VERBAL AND NOXIOUS STIMULI. PT ABLE TO SQUEEZE HANDS UPON COMMAND. OGT IN PLACE WITH TF AT 40 ML/HR GOAL RATE. MINIMAL RESIDUALS NOTED. POWERGLIDE TO WALE IN PLACE. BROWNE TEMP PROBE IN PLACE WITH YELLOW URINE OUTPUT NOTED. SBW RESTRAINTS IN PLACE. VITAL SIGNS STABLE. WILL CONTINUE TO MONITOR.
--- NOTE | 2021-02-11 16:30 | NUR ---
APNEA VENT WITH APNEA ALARM. NO CHANGES TO SEDATION RECENTLY. PT WITHOUT ANY SPONTANEOUS RESPIRATORY DRIVE. RT SHERRIE AT BEDSIDE. PT SWITCHED BACK TO PRESSURE CONTROL 20/5, FIO2 40%.
--- NOTE | 2021-02-11 18:09 | NUR ---
SHIFT SUMMARY NO ACUTE CHANGES THIS SHIFT. PT REMAINS INTUBATED AND SEDATED. PT TOLERATED PRESSURE SUPPORT FOR MOST OF THE SHIFT. PT NOW BACK TO PRESSURE CONTROL 20/5, RR 16, FIO2 40%. PT WITH MODERATE AMOUNT OF ETT SECRETIONS THIS SHIFT. PT SEDATED WITH PROPOFOL AT 50 MCG/KG/MIN. POWERGLIDE IN PLACE TO WALE. OGT REMAINS IN PLACE WITH TF AT 40 ML/HR GOAL RATE. BROWNE TEMP PROBE REMAINS IN PLACE WITH YELLOW URINE OUTPUT NOTED. VITAL SIGNS HAVE REMAINED STABLE. SBW RESTRAINTS IN PLACE. PT SON AT BEDSIDE THIS AFTERNOON. WILL CONTINUE TO MONITOR AND REPORT OFF TO ONCOMING RN.
--- NOTE | 2021-02-11 19:50 | NUR ---
ASSESSMENT/ASSUMED CARE PT INTUBATED AND ON [facility] VENT. SEDATED WITH PROPOFOL AT 50 MCQ/KG/MIN VIA POWER GLIDE TO RIGHT UPPER ARM. POWER GLIDE SITE CLEAR AND DRSG INTACT. LUNGS CLEAR BUT DECREASED. VENT SETTINGS AC/PC 16/20 PEEP 5 FIO2 40%. HEART RATE IRREGULAR, AFIB/AFLUTTER 80-100'S. BP LOW BUT MAP GREATER THAN 65. BT+ HYPOACTIVE. TUBE FEED VIA OG PIVOT 1.5 AT GOAL RATE OF 40 ML/HR, WATER 200 ML Q6HR. RESIDUAL ZERO. IV 20G TO RIGHT AC ABLE TO DRAW BLOOD WITHOUT DIFFICULTY. SITE CLEAR NS AT 10 ML/HR INFUSING. BROWNE CATH PATENT AND DRAINING YELLOW URINE. ORAL CARE DONE AND PT REPOSITIONED. PT AGAITED WITH ORAL CARE AND PULLING AGAINST RESTRAINTS. QUIET WHEN UNDISTURBED. PT NOT FOLLOWING INSTRUCTIONS. BILAT SOFT WRIST RESTRAINTS ON.
--- NOTE | 2021-02-11 23:50 | NUR ---
REASSESSMENT PT RESTING QUIETLY. REPOSITIONED AND ORAL CARE DONE. PT MOVING HANDS AND FOLLOWING SOME SIMPLE INSTRUCTIONS LIKE OPEN YOUR MOUTH AND STICK OUT YOUR TONGUE. BLOOD GLUCOSE 172, 3 UNITS REGULAR INSULIN GIVEN. MAXIPINE STARTED. RESIDUAL ZERO. LOPRESSOR GIVEN VIA OG.
[2021-02-12 03:38] LABS: BASOPHILS ABSOLUTE AUTO 0.04 K/mm3 (0.00-0.23); BASOPHILS PERCENT AUTO 0 % (0-2); EOSINOPHILS ABSOLUTE AUTO 0.08 K/mm3 (0.00-0.68); EOSINOPHILS PERCENT AUTO 0 % (0-6); Hematocrit 51.8 % (37.0-53.0); Hemoglobin 16.1 g/dL (13.5-17.5); IMMATURE GRAN PERCENT AUTO 1 % (0-1); LYMPHOCYTES ABSOLUTE AUTO 1.23 K/mm3 (0.84-5.20); LYMPHOCYTES PERCENT AUTO 7 % (21-46); MONOCYTES ABSOLUTE AUTO 0.82 K/mm3 (0.16-1.47); MONOCYTES PERCENT AUTO 5 % (4-13); Mean Corpuscular HGB Conc 31.1 g/dL (31.5-36.5); Mean Corpuscular Volume 100 fL (80-100); Mean Platelet Volume 12.6 fL (9.1-12.4); NEUTROPHILS ABSOLUTE AUTO 15.67 K/mm3 (1.96-9.15); NEUTROPHILS PERCENT AUTO 87 % (41-73); Platelet Count 136 K/mm3 (150-400); RDW Coefficient Variation 14.3 % (11.7-14.2); RDW Standard Deviation 51.3 fL (35.1-46.3); White Blood Cell Count 18.04 K/mm3 (4.00-11.30)
[2021-02-12 04:24] LABS: Anion Gap 2 mmol/L (6-16); Blood Urea Nitrogen 33 mg/dL (8-24); Bun/Creatinine Ratio 56.2 (12.0-20.0); CO2, Blood 33 mmol/L (21-32); Calcium, Blood 8.5 mg/dL (8.5-10.1); Chloride, Blood 111 mmol/L (98-108); Creatinine, Blood 0.59 mg/dL (0.60-1.20); Glomerular Filtration Rate >60 (60-); Glucose, Blood 251 mg/dL (70-99); Potassium, Blood 4.1 mmol/L (3.5-5.5); Sodium, Blood 146 mmol/L (136-145)
--- NOTE | 2021-02-12 05:38 | NUR ---
SHIFT SUMMARY PT CONT INTUBATED AND ON [facility] VENT. PT OPENING EYES AND FOLLOWING SOME SIMPLE INSTRUCTIONS. NOD HEAD "YES" WHEN ASKED ABOUT PAIN, MED WITH FENTANYL 50 MCQ. NO CHANGES TO VENT SETTINGS DURING THE NIGHT. CURRENT SETTINGS AC/PC 16/20 PEEP 5 FIO2 40%. LUNGS CLEAR BUT DECREASED IN THE BASES. HEART RATE CONT IRREGULAR. 80-100'S. BP STABLE. OG WITH TUBE FEED AT GOAL RATE. NO RESIDUALS DURING THE NIGHT. PROPOFOL DECREASED DURING THE NIGHT, CURRENTLY AT 40 MCQ/KG/MIN. PT TURNED Q2HR. DRSG TO RIGHT BUTTOCKS INTACT. CALAZIME CREAM TO SCROTUM AND SONDRA AREA DUE TO REDNESS FROM BLISTERING. BILAT SOFT WRIST RESTRAINTS ON. REPORT TO ON COMING NURSE.
--- NOTE | 2021-02-12 08:50 | NUR ---
CARE ASSUMED ASSESSMENTS COMPLETED, PT SEDATED WITH 40MCG PROPOFOL, ABLE TO OPEN EYES TO VOICE, FOLLOW COMMANDS, ANSWER YES/NO QUESTIONS. DENIES PAIN. VENT SETTINGS /PC 16/20, PEEP 5, FIO2 40%. RR 16, SPO2 MID 90'S, Vt 500-600. FINE EXP WHEEZE IN L UPPER LOBE, DIM IN BASES. SMALL AMOUNT OF LIGHT YELLOW SPUTUM FROM ETT. HR 90-115 AFIB WITH PVC'S, BP SLIGHTLY HYPOTENSIVE WITH MAP 70'S. ABD DISTENDED, BT HYPOACTIVE, BOWEL CARE IN PLACE. TF VIA OGT AT 40ML/HR, RESIDUAL 50ML. AM CARES COMPLETED, SKIN CARE TO GROIN, PILLOWCASE IN PLACE TO PREVENT SKIN CONTACT D/T EXCORIATION. DR. PINZON AND RT AT BEDSIDE, SEDATION OFF, VENT CHANGED TO PS. PT SOON WOKE, BECAME VERY ANXIOUS WITH HR UP TO 170 AND RR 42. RT BACK AT BEDSIDE, VENT SETTINGS CHANGED TO PS 10/5, FIO2 REMAINS 40%. PROPOFOL RESUMED, TITRATED UP TO 30MCG/KG/MIN BEFORE HR AND RR DECREASED. PT NOW RESTING WITH EYES CLOSED, WAKES EASILY TO VOICE, CONTINUES TO FOLLOW COMMANDS. HR 90'S-110 AFIB WITH PVC'S, BP STABLE, RR 31, Vt 400'S, SPO2 95%.
--- NOTE | 2021-02-12 12:09 | NUR ---
UPDATE PROPOFOL TITRATED BACK UP TO 40MCG/KG/MIN FOR ANXIETY, TACHYPNEA, AND TACHYCARDIA. RR NOW 20'S, HR 120'S-150'S AFIB WITH PVC'S, BP STABLE WITH MAP 80'S, PLAN TO ADMINISTER METOPROLOL IVP. VENT REMAINS ON PS 15/5, FIO2 40%, SPO2 95%, Vt 300-400'S. LS COARSE ON L BUT CLEAR WITH SUCTIONING. PIVOT 1.5 TF DECREASED TO 25ML/HR PER TELEPHONE SEX WORKER ORDERS, RESIDUAL 0ML AT THIS TIME. PT HAS HISTORY OF PTSD, SON NADINE STATES HE WOULD LIKE TO BE PRESENT AT TIME OF EXTUBATION TO HELP CALM PT. PLAN TO DECREASE SEDATION WHEN SON ARRIVES DURING VISITING HOURS FOR TENTATIVE EXTUBATION.
--- NOTE | 2021-02-12 16:29 | NUR ---
UPDATE PT HAS BEEN RESTING WELL THIS AFTERNOON WITH PROPOFOL 40MCG, HR 90-120 AFTER IV METOPROLOL. SON ARRIVED FOR VISITING HOURS, IS AT BEDSIDE AT THIS TIME. PROPOFOL DECREASED TO 20MCG, PT AWAKE AND FOLLOWING DIRECTIONS. DR. PINZON AT BEDSIDE AND CHANGED VENT TO TC SETTING WITH FIO2 100% AND PEEP 5, PT'S RR WAS MID 40'S, Vt 150, HR 150'S. PT ANXIOUS, APPEARS TO CRY INTERMITTENTLY DESPITE SONS ATTEMPTS AT CALMING PT. VENT BACK TO PS 15/10, FIO2 40%, RR DECREASED TO 30 WITH Vt 300'S. WILL GIVE ATIVAN FOR COMFORT PER 'S ORDERS. NO PLANS FOR EXTUBATION TODAY.
--- NOTE | 2021-02-12 18:35 | NUR ---
END OF SHIFT PT CALMED AFTER ATIVAN 2MG IVP, PROPOFOL REMAINS 20MCG/KG/MIN. PT RESTING QUIETLY, HR 90-120 AFIB WITH PVC'S, BP STABLE. VENT SETTINGS PS 15/5, FIO2 40%, Vt 500'S, RR 14, SPO2 96%. LS CLEAR, DIMINISHED IN BASES, SMALL SECRETIONS FROM ETT TODAY. PT WITH LOW GRADE FEVER THIS EVENING, 100.4, COOL RAG TO HEAD, FAN ON. GOOD URINE OUTPUT THIS SHIFT, NO BM. SKIN CARE TO GROIN MULTIPLE TIMES, GROIN SLING REMAINS IN PLACE, MEPILEX TO R BUTTOCK CDI. TF CHANGED TODAY TO VHP 25ML/HR, PT TOLERATING WELL WITH NO RESIDUALS THIS AFTERNOON. MEDICATED FOR CBG'S PER ORDERS. UPDATED.
--- NOTE | 2021-02-12 21:32 | NUR ---
ATIVAN PT TRYING TO CLIMB OUT OF BED. RESP RATE IN THE 30'S. MED WITH ATIVAN 2 MG IV
--- NOTE | 2021-02-12 21:42 | NUR ---
ASSESSMENT/ASSUMED CARE PT INTUBATED AND ON [facility] VENT. PT OPEN EYES TO VERBAL STIMULI. FOLLOWING SOME SIMPLE INSTRUCTIONS. PULLING ON BILAT WRIST RESTRAINTS. VENT SETTINGS PS 15/5 FIO2 40%. LUNGS CLEAR BUT DECREASED IN THE BASES. SUCTIONED SMALL AMT THIN WHITE FLUID VIA ET TUBE. HEART RATE IRREGULAR, AFIB/AFLUTTER 90-120'S. BP STABLE. TRACE LOWER EXT EDEMA. SCD'S ON. BT+HYPOACTIVE. OG WITH TUBE FEED VITAL HP AT GOAL RATE 25 ML/HR, WATER 200 ML Q6HRS. RESIDUAL ZERO. POWER GLIDE TO RIGHT UPPER ARM WITH PROPOFOL AT 20 MCQ/KG/MIN, SITE CLEAR. IV 20G TO RIGHT AC WITH NS TKO, SITE CLEAR ABLE TO DRAW BLOOD VIA IV. IV 20G TO RIGHT WRIST SALINE LOCKED, SITE CLEAR, ABLE TO DRAW BLOOD VIA IV. BROWNE CATH PATENT DRAINING YELLOW URINE. SCROTOM AND SONDRA AREA WITH SLING TO KEEP SKIN FROM TOUCHING. AREA RED WITH CALAZIME CREAM ON. RIGHT BUTTOCKS WITH FOAM DRSG INTACT. PT REPOSITIONED AND ORAL CARE DONE.
[2021-02-13 03:35] LABS: BASOPHILS ABSOLUTE AUTO 0.02 K/mm3 (0.00-0.23); BASOPHILS PERCENT AUTO 0 % (0-2); EOSINOPHILS ABSOLUTE AUTO 0.08 K/mm3 (0.00-0.68); EOSINOPHILS PERCENT AUTO 1 % (0-6); Hematocrit 47.3 % (37.0-53.0); Hemoglobin 14.7 g/dL (13.5-17.5); IMMATURE GRAN ABSOLUTE AUTO 0.16 K/mm3 (0.00-0.10); IMMATURE GRAN PERCENT AUTO 1 % (0-1); LYMPHOCYTES ABSOLUTE AUTO 1.14 K/mm3 (0.84-5.20); LYMPHOCYTES PERCENT AUTO 7 % (21-46); MONOCYTES ABSOLUTE AUTO 0.79 K/mm3 (0.16-1.47); MONOCYTES PERCENT AUTO 5 % (4-13); Mean Corpuscular HGB 30.9 pg (26.0-34.0); Mean Corpuscular HGB Conc 31.1 g/dL (31.5-36.5); Mean Corpuscular Volume 100 fL (80-100); Mean Platelet Volume 12.5 fL (9.1-12.4); NEUTROPHILS PERCENT AUTO 87 % (41-73); Platelet Count 149 K/mm3 (150-400); RDW Coefficient Variation 13.8 % (11.7-14.2); RDW Standard Deviation 50.9 fL (35.1-46.3); Red Blood Cell Count 4.75 M/mm3 (4.30-5.90); White Blood Cell Count 16.69 K/mm3 (4.00-11.30)
[2021-02-13 03:50] LABS: Anion Gap 0 mmol/L (6-16); Blood Urea Nitrogen 29 mg/dL (8-24); Bun/Creatinine Ratio 48.3 (12.0-20.0); CO2, Blood 34 mmol/L (21-32); Calcium, Blood 8.4 mg/dL (8.5-10.1); Chloride, Blood 111 mmol/L (98-108); Glomerular Filtration Rate >60 (60-); Glucose, Blood 167 mg/dL (70-99); Potassium, Blood 3.8 mmol/L (3.5-5.5); Sodium, Blood 145 mmol/L (136-145)
--- NOTE | 2021-02-13 06:01 | NUR ---
SHIFT SUMMARY PT CONT INTUBATED AND ON [facility] VENT. PT HAS REMAINED ON PS 15/5 FIO2 40% ALL NIGHT. LUNGS CLEAR BUT DECREASED IN THE BASES. SUCTIONED SMALL AMT THIN WHITE FLUID VIA ET TUBE. HEART CONT IRREGULAR, AFIB/AFLUTTER 90-120'S. BP STABLE. PT SEDATED WITH PROPOFOL AT 20 MCQ/KG/MIN. PT MED WITH ATIVAN ONCE DURING THE SHIFT FOR INCREASED RESP RATE AND INCREASED HEART RATE WITH GOOD RESULTS. PT OPENING EYES AND FOLLOWING SIMPLE INSTRUCTIONS. BILAT SOFT WRIST RESTRAINTS ON. VSS. REPORT TO ON COMING NURSE
[2021-02-13 08:52] LABS: Vancomycin, Trough 9.5 ug/mL (5.0-10.0)
--- NOTE | 2021-02-13 10:52 | NUR ---
CARE ASSUMED ASSESSMENTS COMPLETED, PT REMAINS SEDATED WITH PROPOFOL 20MCG, ATIVAN 2MG ADMINISTERED FOR ANXIETY/AGITATION WITH GOOD RESULTS. VENT REMAINS PS 15/5, FIO2 40%, RR 15, Vt 400, SPO2 MID 90'S. LS CLEAR, DIM IN BASES, SLIGHT COARSE LS IN L BASE CLEARED WITH ETT SUCTIONING OF SMALL AMOUNT LIGHT YELLOW SPUTUM. HR AFIB 70'S-120, INCREASES WITH AGITATION BUT IS BACK TO BASELINE <120 WITH REST. BP STABLE WITHOUT. ABD FIRM, DISTENDED, VITAL HP AT 25ML/HR WITH 0ML RESIDUAL. BROWNE PATENT AND DRAINING, LE'S ELEVATED WITH SCD'S ON. AM CARES COMPLETED, EXCORIATED GROIN CLEANSED, DRYED, CALMOSEPTINE APPLIED, GROIN SLING IN PLACE. DR. PINZON IN TO ASSESS, PLAN TO STOP PROPOFOL FOR WEAN TRIAL TODAY.
--- NOTE | 2021-02-13 12:28 | NUR ---
UPDATE PT HAS BEEN RESTING WELL SINCE ATIVAN WAS ADMINISTERED THIS AM, NO ADDITIONAL DOSES REQUIRED. VSS, HR 90-110 AFIB WITHOUT ECTOPY, BP WNL. VENT SETTINGS UNCHANGED, RR 17, SPO2 93%, Vt 400-500. AWAITING SON'S ARRIVAL TO ATTEMPT VENT WEAN PER PT'S /SON REQUEST D/T PT'S SEVERE ANXIETY.
--- NOTE | 2021-02-13 16:40 | NUR ---
SBT SON AT BEDSIDE, SEDATION PUT ON STANDBY. PT WOKE, FOLLOWED DIRECTION, ANSWERED YES/NO. RR 20'S, Vt 500'S, ATIVAN ADMINISTERED, VENT SETTINGS CHANGED TO PS 7/5, FIO2 40%. PT'S SON ABLE TO TALK PT INTO TAKING SLOW BREATHS, BUT WHEN SON STOPPED COACHING PT, PT BECAME TACHYPNEIC WITH RR 30'S UP TO 41, Vt 200'S, SPO2 MAINTAINING >90%. HR 100-[address], [address] PINZON AT BEDSIDE, PT FAILED WEAN D/T HIGH RR AND LOW Vt. VENT CHANGED BACK TO PS 15/5, RR IMMEDIATELY IMPROVED TO 22 AND Vt 500'S. PROPOFOL RESUMED, PT RESTING WITH EYES CLOSED, VSS.
--- NOTE | 2021-02-13 18:16 | NUR ---
END OF SHIFT VENT SETTINGS UNCHANGED, PT RESTING QUIETLY, HR 80'S AFIB, BP STABLE. SPO2 96%, RR 12, Vt 500'S, LS CLEAR, SMALL AMOUNT OF SECRETIONS THIS SHIFT. PT RESPONDS WELL TO ATIVAN FOR ANXIETY, PROPOFOL REMAINS 20MCG/KG/MIN. NO BM THIS SHIFT, BOWEL CARE ORDERED.
[2021-02-14 03:38] LABS: BASOPHILS ABSOLUTE AUTO 0.02 K/mm3 (0.00-0.23); BASOPHILS PERCENT AUTO 0 % (0-2); EOSINOPHILS ABSOLUTE AUTO 0.07 K/mm3 (0.00-0.68); EOSINOPHILS PERCENT AUTO 1 % (0-6); Hemoglobin 13.9 g/dL (13.5-17.5); IMMATURE GRAN ABSOLUTE AUTO 0.14 K/mm3 (0.00-0.10); IMMATURE GRAN PERCENT AUTO 1 % (0-1); LYMPHOCYTES ABSOLUTE AUTO 1.38 K/mm3 (0.84-5.20); LYMPHOCYTES PERCENT AUTO 9 % (21-46); MONOCYTES ABSOLUTE AUTO 0.75 K/mm3 (0.16-1.47); MONOCYTES PERCENT AUTO 5 % (4-13); Mean Corpuscular HGB Conc 31.6 g/dL (31.5-36.5); Mean Corpuscular Volume 98 fL (80-100); Mean Platelet Volume 12.7 fL (9.1-12.4); NEUTROPHILS PERCENT AUTO 85 % (41-73); Platelet Count 167 K/mm3 (150-400); RDW Coefficient Variation 13.5 % (11.7-14.2); RDW Standard Deviation 49.1 fL (35.1-46.3); Red Blood Cell Count 4.48 M/mm3 (4.30-5.90); White Blood Cell Count 15.16 K/mm3 (4.00-11.30)
[2021-02-14 04:06] LABS: Anion Gap 1 mmol/L (6-16); Blood Urea Nitrogen 25 mg/dL (8-24); Bun/Creatinine Ratio 45.5 (12.0-20.0); CO2, Blood 33 mmol/L (21-32); Calcium, Blood 8.2 mg/dL (8.5-10.1); Chloride, Blood 109 mmol/L (98-108); Creatinine, Blood 0.55 mg/dL (0.60-1.20); Glomerular Filtration Rate >60 (60-); Glucose, Blood 173 mg/dL (70-99); Potassium, Blood 3.9 mmol/L (3.5-5.5); Sodium, Blood 143 mmol/L (136-145)
--- NOTE | 2021-02-14 05:29 | NUR ---
SHIFT SUMMARY PATIENT HAS SLEPT WELL THRU NIGHT. GAVE X3 DOSES OF ATIVAN 2NG TO HELP WITH AGITATION R/T ORAL CARE, QUICKLY CALMED DOWN EACH TIME. EARLY IN MORNING HAD TO SWITCH PT TO AC VENT MODE, TIRED OUT AND TRIGGERING APNEA ALARMS. PT HAD STARTED FOLLOWING BASIC DIRECTIONS, SQUEEZING HANDS AND MOVING LEGS EQUALLY, HOWEVER DID NOT ANSWER YES/NO ?S FOR ME. WHEN AWAKE WAS OFTEN ATTEMPTING TO REACH UP AND PULL AT ETT, ENSURED RESTRAINTS WERE IN PLACE SECURELY. ASSESSMENT IS CHARTED. VSS. WILL CONTINUE TO MONITOR.
[2021-02-14 09:55] LABS: Vancomycin, Trough 15.9 ug/mL (5.0-10.0)
--- NOTE | 2021-02-14 16:27 | NUR ---
PT INTUBATED AND SEDATED WITH PROPOFOL. PT WILL RESPOND TO PAIN. WAS OFF SEDATION THIS AM FOR SBT AND PT WOULD FOLLOW COMMANDS AND NOD YES OR NO TO QUESTIONS. PT DID WELL FOR A FEW HOURS ON SBT BUT BECAME ANXIOUS, TACHYPNEIC, AND TACHYCARDIC. TRIED ATIVAN AND FENTANYL BEFORE PT WAS EVENTUALLY PLACED BACK ON PROPOFOL. SINCE PT HAS BEEN CALM. BACK TO AC/PC SETTINGS PREVIOUS. SON AT BEDSIDE NOW AND WAS UPDATED ABOUT SBT. NO SIGN OF DISTRESS. WILL REPORT TO RAYA RN WHO WILL ASSUME CARE.
--- NOTE | 2021-02-14 17:21 | NUR ---
CARE ASSUMED 1630 REPORT RECIEVED AT BEDSIDE. PT INTUBATED AND SEDATED. PROPOFOL 20 MCG/MIN, PT RESPONDS TO NOXIOUS STIMULI, GRIMACE DURING ORAL CARE. VENT SETTINGS: AC PC 16/20/5/35%, SPO2 > 90%. VHP @ GOAL OF 25 ML/HR. RESIDUAL OF 0. SWB IN PLACE. VSS. SON AT BEDSIDE. BROWNE IN PLACE DRANING TO GRAVITY, 800 ML OF DARK YELLOW URINE OUTPUT.
--- NOTE | 2021-02-14 18:49 | NUR ---
Shift Summary No changes since care assumed, see previous note.
--- NOTE | 2021-02-14 20:00 | NUR ---
PT RECEIVED FROM LUNA RIVERA. PT ON VENTILATOR ACPC PEEP 5 40%. TOLERATING WELL WITH SATS >93%. PT DOESN'T LIKE ORAL CARE, REPOSITIONED AND HE MOVES HIS LEGS AND REPOSITIONS HIMSELF. PULLS ON RESTRAINTS WITH ORAL CARE AND SUCTIONING. PROPOFOL @ 20MCG/KG/MIN AND NS @ TKO WITH VANCOMYCIN ANTIBIOTIC INFUSING. PT DOESN'T OPEN EYES, DOESN'T RESPOND TO COMMANDS, HANDS/FOREARMS WITH 1+EDEMA, FEET BIANCA WITH GOOD PULSES, ABDOMEN SEMI SOFT/TENDER WITH OK BOWEL TONES, BROWNE TO GRAVITY DRAINAGE.
--- NOTE | 2021-02-15 00:23 | NUR ---
DURING BED BATH, LAVINIA WAS AWAKE AND ANSWERING WITH A NOD OR SHAKE OF THE HEAD. HE WAS APPROPRIATE AND DOING WELL. HE DOESN'T TOLERATE ORAL CARE, TALKED HIM DOWN AND REASSURED HIM, HE CALMED BACK DOWN. HIS ETT WAS TONY, SARAHIRT CALLED AND CHECKED CUFF, AIR INSERTED. WILL CONTINUE TO MONITOR.
--- NOTE | 2021-02-15 05:50 | NUR ---
LAVINIA HAS BEEN RESTING MOST OF THE SHIFT, OTHER THAN NOTED DURING BATH TIME. HE IS ON ACPC 16/20 PEEP 5 AND 40%. HIS PROPOFOL WAS JUST TURNED DOWN TO 15 MCG/KG/MIN FOR A SWITCH TO PS. HIS LUNGS REMAIN CLEAR BUT DIMINISHED IN THE LEFT, BROWNE WITH DARK DOT RETURN. SONDRA AREA EXCORIATED, CLEANED, DRYED AND MICONAZOLE POWDER PLACED FOR COMFORT. PAS HAVE BEEN OFF FOR LAST HALF OF SHIFT. TURNED Q2H. NO OTHER CHANGES
[2021-02-15 06:27] LABS: BASOPHILS ABSOLUTE AUTO 0.03 K/mm3 (0.00-0.23); BASOPHILS PERCENT AUTO 0 % (0-2); EOSINOPHILS ABSOLUTE AUTO 0.07 K/mm3 (0.00-0.68); EOSINOPHILS PERCENT AUTO 1 % (0-6); Hematocrit 43.2 % (37.0-53.0); Hemoglobin 13.9 g/dL (13.5-17.5); IMMATURE GRAN PERCENT AUTO 1 % (0-1); LYMPHOCYTES ABSOLUTE AUTO 1.48 K/mm3 (0.84-5.20); LYMPHOCYTES PERCENT AUTO 11 % (21-46); MONOCYTES ABSOLUTE AUTO 0.76 K/mm3 (0.16-1.47); MONOCYTES PERCENT AUTO 6 % (4-13); Mean Corpuscular HGB Conc 32.2 g/dL (31.5-36.5); Mean Corpuscular Volume 96 fL (80-100); Mean Platelet Volume 12.8 fL (9.1-12.4); NEUTROPHILS PERCENT AUTO 83 % (41-73); Platelet Count 201 K/mm3 (150-400); RDW Coefficient Variation 13.2 % (11.7-14.2); RDW Standard Deviation 47.6 fL (35.1-46.3); Red Blood Cell Count 4.49 M/mm3 (4.30-5.90); White Blood Cell Count 13.94 K/mm3 (4.00-11.30)
[2021-02-15 06:51] LABS: Anion Gap 3 mmol/L (6-16); Blood Urea Nitrogen 26 mg/dL (8-24); CO2, Blood 31 mmol/L (21-32); Calcium, Blood 7.8 mg/dL (8.5-10.1); Chloride, Blood 108 mmol/L (98-108); Creatinine, Blood 0.58 mg/dL (0.60-1.20); Glomerular Filtration Rate >60 (60-); Glucose, Blood 166 mg/dL (70-99); Potassium, Blood 3.6 mmol/L (3.5-5.5); Sodium, Blood 142 mmol/L (136-145)
--- NOTE | 2021-02-15 07:24 | NUR ---
Becker of Care: Care assumed at 0700hr. Patient intubated and sedated with propofol at 15mcg/kg/min. Rouses easily to verbal stimuli. Follows commands to move all extremities and nods head yes/no appropriately. Denies pain or discomfort, but appears slightly anxious when awake. Nods "yes" when asked if anxious r/t ETT. Vent to AC/PC 16/20/5/35%, tolerating vent without difficulty, spO2-95%. VSS Power-glide to WALE patent and intact. Grigsby cath patent and intact, draining clear brent urine. Bilateral soft wrist restraints to protec lines, tubes, cords. Will consult with Dr. Fonseca this morning r/t weaning and possible extubation today. Will continue to monitor.
--- NOTE | 2021-02-15 13:31 | NUR ---
Update: Consulted with Dr. Fonseca this morning r/t extubating patient today. Propofol gtt turned off, and 2mg Ativan given as patient began to rouse and became restless. Prn Ativan effective to calm patient. Vent then changed to pressure support mode 15/5 fro approx 30min, then decreased to 12/[address] Fonseca. Patient unable sustain PS mode of 12/5, respiratory rate increased to 40's, and tidal volumes decreased to 280-300. PS increased back to 15/5, but this only effective for approx 30min. Patient's respiratory rate again increased to 40's and tidal volumes decreased. Consulted with Dr. Fonseca and Dr. Vu. Instructed to change patient back to AC mode and re-start propofol. Patient now appears calm and comfortable, tolerating vent without difficulty. Will continue to monitor.
--- NOTE | 2021-02-15 14:50 | NUR ---
ASSUMED CARE: REPORT RECEIVED FROM ELAYNE Hall RN. ASSUMED CARE OF THIS PT AT APPROX 1400. ON ASSESSMENT, THE PT APPEARS COMFORTABLE & IS RESTING QUIETLY W/ HIS , TREY, AT BEDSIDE. VENT SETTINGS: AC/PC 16/20/5/35% W/ O2 SATS > 92%. MONITOR SHOWS AFIB W/ HR 90s, BP STABLE. TUBE FEEDS INFUSING AT GOAL RATE, NO RESIDUALS PER REPORT. TEMP BROWNE PATENT/ DRAINING DARK YELLOW URINE. Q2H REPOSITIONING TO MAINTAIN SKIN INTEGRITY. WILL CONTINUE TO MONITOR & UPDATE NEEDED.
--- NOTE | 2021-02-15 18:27 | NUR ---
SHIFT SUMMARY: NO ACUTE CHANGES SINCE PRIOR UPDATES. PT REMAINS SEDATED & INTUBATED. HE GRIMACES TO ADLs SUCH ORAL CARE & REPOSITIONING, RESPONDS WELL TO VERBAL REDIRECTION W/ ANXIETY. VENT SETTINGS: AC/PC 16/20/5/35% W/ O2 SATS > 92%. MONITOR SHOWS AFIB W/ HR 90-100s, BP STABLE. OGT IN PLACE W/ TUBE FEEDS INFUSING AT GOAL RATE, NO RESIDUALS. TEMP BROWNE PATENT/ DRAINING DARK YELLOW URINE. SKIN CONDITION OVERALL INTACT, Q2H REPOSITIONING TO MAINTAIN SKIN INTEGRITY. WILL CONTINUE TO MONITOR & REPORT OFF TO ONCOMING RN.
--- NOTE | 2021-02-15 22:04 | NUR ---
PT RECEIVED AT 1900 FROM LUNA ULLOA. PT ON PROPOFOL 25MCG/KG/MIN, UNDISTURBED BY VOICE INTERACTION. ON VENTILATOR PC 16/12 PEEP 5, 35% FIO2. TOELRATING WELL. ARMS PUFFY, SWOLLEN. PG IN BOTH UPPER EXTREMITIES, BOTH INFUSING WELL. TUBE FEEDING VHP INFUSING @ 25ML/HR. WHOLE SYSTEM CHANGED OUT, NO RESIDUAL. PT CONTINUES WITH COOL LOWER EXTREMITIES, MOVES THEM ABOUT HIMSELF. HE HAS BEEN RESPOSITIONED AND DONE WELL WITH THAT. CONTINUES TO BE BOTHERED BY THE ORAL CARE. BROWNE TO GRAVITY DRAINAGE. HE WAS MEDICATED WITH ATIVAN FOR AGITATION BY ANOTHER NURSE. RESTING WELL.
[2021-02-16 03:54] LABS: BASOPHILS ABSOLUTE AUTO 0.02 K/mm3 (0.00-0.23); BASOPHILS PERCENT AUTO 0 % (0-2); EOSINOPHILS ABSOLUTE AUTO 0.07 K/mm3 (0.00-0.68); EOSINOPHILS PERCENT AUTO 1 % (0-6); Hematocrit 42.2 % (37.0-53.0); Hemoglobin 13.5 g/dL (13.5-17.5); IMMATURE GRAN ABSOLUTE AUTO 0.13 K/mm3 (0.00-0.10); IMMATURE GRAN PERCENT AUTO 1 % (0-1); LYMPHOCYTES ABSOLUTE AUTO 1.48 K/mm3 (0.84-5.20); LYMPHOCYTES PERCENT AUTO 11 % (21-46); MONOCYTES ABSOLUTE AUTO 0.78 K/mm3 (0.16-1.47); MONOCYTES PERCENT AUTO 6 % (4-13); Mean Corpuscular HGB 30.8 pg (26.0-34.0); Mean Corpuscular Volume 96 fL (80-100); Mean Platelet Volume 12.3 fL (9.1-12.4); NEUTROPHILS PERCENT AUTO 81 % (41-73); Platelet Count 229 K/mm3 (150-400); RDW Coefficient Variation 13.3 % (11.7-14.2); RDW Standard Deviation 47.6 fL (35.1-46.3); Red Blood Cell Count 4.38 M/mm3 (4.30-5.90); White Blood Cell Count 13.28 K/mm3 (4.00-11.30)
[2021-02-16 04:10] LABS: Anion Gap 1 mmol/L (6-16); Blood Urea Nitrogen 26 mg/dL (8-24); Bun/Creatinine Ratio 50.7 (12.0-20.0); CO2, Blood 32 mmol/L (21-32); Calcium, Blood 7.7 mg/dL (8.5-10.1); Chloride, Blood 106 mmol/L (98-108); Creatinine, Blood 0.51 mg/dL (0.60-1.20); Glomerular Filtration Rate >60 (60-); Glucose, Blood 174 mg/dL (70-99); Potassium, Blood 3.9 mmol/L (3.5-5.5); Sodium, Blood 139 mmol/L (136-145)
--- NOTE | 2021-02-16 06:13 | NUR ---
LAVINIA HAS HAD A GOOD NIGHT, HE CONTINUES ON PROPOFOL @25MCG/KG/MIN. HE CONTINUES WITH TKO NS @ 10ML/HR, VHP @ 25ML/HR, HE RECORDED NO RESIDUALS FOR ME. HIS BELLY IS ROUND, FIRM, NON TENDER, BROWNE TO GRAVITY DRAINAGE. PT VERY TOLERANT OF CARE UNTIL ORAL CARE IS PERFORMED. HE HAS BEEN TURNED Q2, SKIN CHECKED REPEATEDLY, PERINEUM WITH MICONAZOLE POWDER. WILL REPORT OFF TO NEXT SHIFT WHEN AVAILABLE.
--- NOTE | 2021-02-16 10:00 | NUR ---
Care Assumed 0700 Pt intubated and sedated with propofol. Vent settings: AC PC 16/12/10/35%, pt tolerating well, changed to PS 15/10, FIO2 35% by RT. Pt able to follow commands, tracking in room, and strong metal expediter strength. Propofol infusing via powerglide to WALE. SWB in place. Tube feed at goal with 200 ml flush q 6, will discuss with provider, pt appears fluid overloaded. Temp larsen in place. VSS. Pt remains in afib or aflutter. Will continue to monitor.
[2021-02-16 10:47] LABS: Vancomycin, Trough 16.7 ug/mL (5.0-10.0)
--- NOTE | 2021-02-16 11:00 | NUR ---
Dr. Basurto at bedside, vent settings changed Provider at bedside, order recieved for furosemide 40 mg. Goal urine output of 1,000 per provider, will closely monitor. Propofol placed on SB, treated per emar. Restarted Propofol at low dose if needed, prior to given ativan. Pt able to follow commands, tracking with eyes. Vent settings changed to PS 15/5, FIO2 35%. Flush changed to 30 ml Q4 instead of 200 ml Q 6.
--- NOTE | 2021-02-16 14:30 | NUR ---
AFIB RVR for 10 seconds HR 140's-150. Pt attempting to speak. PRN metoprolol 2.5 mg IV given with good effect. HR 90's-101. Remains in Afib. Marcellus nurse made aware.
--- NOTE | 2021-02-16 15:54 | NUR ---
ALBINA RVR at bedside. HR between 130-170's, treated per emar. Provider asked to restart patient sedation due to pt pulling on restraints and appears uncomfortable/anxious. Propofol GTT 30 mcg/kg/min. Vent settings PS 13/5, FIO2 30%. Pt toleratinmg vent well. at bedside, provider spoke to . emotional and tearful but explained pt is going in the right directions with vent. Son waiting in the waiting room and updated on current siutation.
--- NOTE | 2021-02-16 18:34 | NUR ---
Shift Summary Pt resedated and continues to be intubated. Vent settings: PS 13/5, FIO2 30%. Tolerating well. Propofol 25 mcg/kg/min, pt opens eyes and follows commands. No other event of Afib with RVR since previous notes. VHP @ goal, no residuals. Temp larsen in place. SWB in place. Son at bedside after pts left. Son states he would like to be present when his father is extubated.
--- NOTE | 2021-02-16 20:32 | NUR ---
PT RECEIVED FROM LUNA DOS SANTOS. PT LYING IN BED, NOT RESPONDING TO VERBAL STIMULI. ON PS PEEP 5, TITRATING DOWN PROPOFOL RT WANTING TO TITRATE DOWN PS NUMBERS. HE IS NOW 12/5 AND 30%. OPENS EYES WHEN SPOKEN TO, CONTINUES HIS DISLIKE FOR ORAL CARE, ENCOURAGED THROUGH IT, GOES BACK TO RESTING. LUNGS CLEAR, DIMINISHED T/0, ABDOMEN LARGE SOFT NON-TENDER, BROWNE TO GRAVITY DRAINAGE. HANDS LESS PUFFY TODAY, CONTINUE WITH UE EDEMA 1-2+. LEGS COOL TO THE TOUCH, MOVES THEM TO HIS COMFORT.
--- NOTE | 2021-02-16 23:03 | NUR ---
WENT IN TO GIVE LAVINIA HIS BATH, HE OPENED HIS EYES, ACKNOWLEDGED US. HE ENGAGES IN OUR CONVERSATION WITH HIM WITH HEAD NODS/SHAKES. HIS GROIN CONTINUES WITH SKIN EXCORIATION AND PEELING, MEATUS WITH WHITE CREAMY EXUDATE, AREA CLEANED AND DRIED AND MICONAZOLE POWDER APPLIED. HE WAS ASKED IF HE WAS COMFORTABLE AND HE SHOOK HIS HEAD, ASKED IF HE WOULD LIKE PAIN MEDICATION, HE NODDED. MEDICATED WITH FENTANYL 50MCG PER MAR.
--- NOTE | 2021-02-17 02:00 | NUR ---
DURING PT TURN AND REPOSITION, ASKED PT IF HE WAS TIRED AND HE SHOOK HIS HEAD, ASKED PT IF HE WAS TIRED OF FIGHTING FOR BREATHING AND HE NODDED,REASSURANCE GIVEN AND ENCOURAGEMENT, PT TEARFUL. HELD HAND FOR A BRIEF AMOUNT OF TIME. PT ENCOURAGED TO NOT GIVE UP, HE NODDED IN AGREEMENT. HELEN FROM RESPIRATORY ALSO GAVE PT ENCOURAGEMENT.
--- NOTE | 2021-02-17 04:21 | NUR ---
BEHAVIORS ENTERED ROOM D/T PUMP ALARMING; UPON ENTERING ROOM PT'S RIGHT WRIST WAS IN A RESTRAINT, BUT WAS REACHING TOWARD ETT. THEREFORE, TIGHTENED RESTRAINT AND EDUCATED PT REGARDING REASON FOR RESTRAINT AND THAT HE WOULDN'T WANT TO PULL OUT HIS TUBE. PT THEN FURROWED HIS BROW AT ME AND THEN ATTEMPTED TO KICK ME. WHEN ASKED PT IF HE ATTEMPTED TO KICK ME HE SHOOK HIS HEAD "YES". ASKED PT IF HE HAD AN ITCH ON HIS FACE IN WHICH HE NODDED "YES". WASHED FACE WITH WASH CLOTH AND RUBBED IN A FASHION TO ASSIST WITH PT'S ITCH. PT APPEARED RELIEVED FOR A SHORT PERIOD OF TIME AND THEN BECAME AGITATED AGAIN. INFORMED PT THAT I WAS NOT HIS PRIMARY NURSE, BUT WOULD HAVE HIS PRIMARY NURSE COME TO HIS ROOM WHEN SHE WAS AVAILABLE. PT CONTINUED TO ATTEMPT TO MOUTH WORDS THROUGH HIS ETT. HE WAS ALSO NOTED TO BE BANGING HIS FISTS ON THE SIDERAILS, WELL SOUNDING VENT ALARMS D/T HIGH PEAK PRESSURES. DISCUSSED HIS BEHAVIORS WITH HIS PRIMARY RN IN REGARDS TO INCREASING HIS SEDATION. PRIMARY RN GAVE THE OKAY TO INCREASE PROPOFOL TO 30MCG/KG/MIN, WELL MEDICATE WITH 100MCG OF FENTANYL IV, WHICH BOTH WERE EFFECTIVE. PT ABLE TO RELAX ENOUGH TO OBTAIN LABS, WELL PERFORM ORAL CARES AND REPOSITION. PRIMARY RN UPDATED ON CARES GIVEN.
[2021-02-17 04:28] LABS: BASOPHILS ABSOLUTE AUTO 0.03 K/mm3 (0.00-0.23); BASOPHILS PERCENT AUTO 0 % (0-2); EOSINOPHILS ABSOLUTE AUTO 0.06 K/mm3 (0.00-0.68); EOSINOPHILS PERCENT AUTO 1 % (0-6); Hematocrit 45.2 % (37.0-53.0); Hemoglobin 14.4 g/dL (13.5-17.5); IMMATURE GRAN ABSOLUTE AUTO 0.13 K/mm3 (0.00-0.10); IMMATURE GRAN PERCENT AUTO 1 % (0-1); LYMPHOCYTES PERCENT AUTO 14 % (21-46); MONOCYTES PERCENT AUTO 7 % (4-13); Mean Corpuscular HGB 30.7 pg (26.0-34.0); Mean Corpuscular HGB Conc 31.9 g/dL (31.5-36.5); Mean Corpuscular Volume 96 fL (80-100); Mean Platelet Volume 12.2 fL (9.1-12.4); NEUTROPHILS ABSOLUTE AUTO 9.27 K/mm3 (1.96-9.15); NEUTROPHILS PERCENT AUTO 77 % (41-73); Platelet Count 243 K/mm3 (150-400); RDW Coefficient Variation 13.3 % (11.7-14.2); RDW Standard Deviation 47.1 fL (35.1-46.3); Red Blood Cell Count 4.69 M/mm3 (4.30-5.90); White Blood Cell Count 11.99 K/mm3 (4.00-11.30)
[2021-02-17 04:46] LABS: Anion Gap 1 mmol/L (6-16); Blood Urea Nitrogen 23 mg/dL (8-24); Bun/Creatinine Ratio 47.1 (12.0-20.0); CO2, Blood 33 mmol/L (21-32); Calcium, Blood 8.1 mg/dL (8.5-10.1); Chloride, Blood 104 mmol/L (98-108); Creatinine, Blood 0.49 mg/dL (0.60-1.20); Glomerular Filtration Rate >60 (60-); Glucose, Blood 178 mg/dL (70-99); Potassium, Blood 3.5 mmol/L (3.5-5.5); Sodium, Blood 138 mmol/L (136-145)
--- NOTE | 2021-02-17 04:51 | NUR ---
RESPIRATORY THERAPY HAS BEEN WORKING ON TRYING TO GET THE PS DECREASED T/O THE NIGHT. PT HAS GONE FROM 07/12 TO 07/01 TO 06/01 THEN BACK TO 07/01 AND NOW 07/12. HIS RESPIRATORY RATE IS IN THE 20'S AND HIS TIDAL VOLUMES ARE LESS THAN 400. NOW THAT HE HAS BEEN MEDICATED WITH FENTANYL AND INCREASED PROPOFOL TO 30 MCG/KG HE IS RESTING BETTER, RATE IS BETTER AND vT ARE IMPROVED.
--- NOTE | 2021-02-17 07:35 | NUR ---
Care Assumed 0700 Pt intubated and sedated. Propofol GTT 30 mcg/kg/min, pt able to open eyes, following directions, nods yes to being in pain, yes to upper/lower back pain, no to headache/pain elsewhere, treated per emar. Moves all extrems, strong emt/paramedic strength. Vent settings: PS 13/5, FIO2 30% SPO2 > 90%. AFIB. HR 80-90'S. VSS. VHP @ GOAL, residual < 5. BT hypoactive. Temp larsen (98.1) with 10 brent cloudy urine. SWB in place. Call light within reach. Will attempt to decrease Propofol as tolerated.
--- NOTE | 2021-02-17 09:30 | NUR ---
Vent changes: PS 11 to 13 PS 11, 5, FIO2 30% changed back to PS 13 due to patient pulling low tidal volumes (low 200's). Christina RT aware. Dr. Trejo would like PS decreased as tolerated.
--- NOTE | 2021-02-17 11:33 | NUR ---
Update- Vent settings changed to AC PC ///30%. Tolerating well. Dr. Basurto would like patient to have break. Propofol GTT 25 MCG/KG/MIN. Pt still able to follow commands and answer yes/no questions. Will change to PS around 1300 and move patient to chair. VSS. Afib.
--- NOTE | 2021-02-17 15:32 | NUR ---
Update: PS 12, Peep 5, FIO2 30%. Changed by Dr. Trejo. Pt sitting in chair, very emotional, crying at times with son at side. Explained the importance of SBT and pt trending towards right direction. propofol GTT 30 MCG/KG/MIN. Son states understanding of current care being proivded and would like to be present during time of extubation. Will continue to monitor.
--- NOTE | 2021-02-17 15:57 | NUR ---
Vent settings update 1555 Vent settings changed to PS 10/5, FIO2 30% by Dr. Trejo. Pt tolerating well thus far.
--- NOTE | 2021-02-17 17:52 | NUR ---
Shift Summary Pt changed to PS 12/, FIO2 30% at 1610 but pt did not tolerate this for long due to increased RR and HR. Switched to AC PC /5/30%, Propofol GTT 30 mcg/kg/min. Pt still able to follow commands and nods no to being in pain at this time. Son at bedside since 1430 and left home now. Pt provided with pen and paper, with assistance able to write "Mom" but unclear as to what pt is mouthing. Son states he will return tomorrow, all questions answered. VHP @ goal. Temp larsen in place. Remains in Afib. VSS. Call light within reach. Pt moved from chair back to bed to follow for rest tonight per Dr. Trejo we will try PS again tomorrow.
--- NOTE | 2021-02-17 21:29 | NUR ---
ASSUMED CARE AT 1900 LAVINIA WAS LYING IN BED WITH THE APPEARANCE OF COMPLETE COMFORT. HE WAS LYING A BIT SIDEWAYS AND LOOKED VERY COMFORTABLE. HE WAS REPOSITIONED, AWAKENED TO VOICE, NODDING AND SHAKING HIS HEAD IN RESPONSE TO QUESTIONS. HIS LUNGS ARE DIMINISHED T/O, ABDOMEN SOFT, NON TENDER, DENIES THE NEED TO HAVE A BM. BROWNE DRAINING TO GRAVITY WITH CLEAR YELLOW RETURN. HAND EDEMA IS IMPROVING, WELL UPPER ARMS. HE WAS GIVEN HIS BATH AND HE WAS DOING STRETCHING WITH HIS HANDS AND ARMS, MOVING HIS LEGS. HIS PERINEUM CONTINUES TO PEEL AND LOSE SKIN. IT IS REDDENED AND MICONAZOLE POWDER IS APPLIED TO SCROTUM, BUTT CHEEKS, INNER THIGHS, HE SHRUGS HIS SHOULDERS WHEN ASKED IF IT HELPS IT TO FEEL BETTER. FEET AND LEGS MOBILE, GOOD CIRCULATION. HE HAS BEEN TRYING TO COMMUNICATE SOMETHING TO THIS NURSE, HE HAS BEEN UNABLE TO RELAY WHAT IT IS. GIVEN SIGN BOARD, UNABLE TO WRITE OR POINT AT THE LETTERS. SHAKES HIS HEAD WHEN I CAN'T FIGURE IT OUT. ASKED PORTAL DEVELOPER TO TRY TO HELP, SHE WAS UNABLE TO FIGURE OUT HIS NEED WELL. ENCOURAGED TO REST AFTER HIS EVENTFUL DAY AND BE PREPARED FOR TOMORROW.
[2021-02-18 04:27] LABS: BASOPHILS ABSOLUTE AUTO 0.02 K/mm3 (0.00-0.23); BASOPHILS PERCENT AUTO 0 % (0-2); EOSINOPHILS ABSOLUTE AUTO 0.06 K/mm3 (0.00-0.68); EOSINOPHILS PERCENT AUTO 1 % (0-6); Hematocrit 41.2 % (37.0-53.0); Hemoglobin 13.4 g/dL (13.5-17.5); IMMATURE GRAN ABSOLUTE AUTO 0.12 K/mm3 (0.00-0.10); IMMATURE GRAN PERCENT AUTO 1 % (0-1); LYMPHOCYTES ABSOLUTE AUTO 1.43 K/mm3 (0.84-5.20); LYMPHOCYTES PERCENT AUTO 14 % (21-46); MONOCYTES PERCENT AUTO 7 % (4-13); Mean Corpuscular HGB 30.8 pg (26.0-34.0); Mean Corpuscular HGB Conc 32.5 g/dL (31.5-36.5); Mean Corpuscular Volume 95 fL (80-100); Mean Platelet Volume 12.2 fL (9.1-12.4); NEUTROPHILS ABSOLUTE AUTO 7.87 K/mm3 (1.96-9.15); NEUTROPHILS PERCENT AUTO 77 % (41-73); Platelet Count 254 K/mm3 (150-400); RDW Coefficient Variation 13.2 % (11.7-14.2); RDW Standard Deviation 45.5 fL (35.1-46.3); Red Blood Cell Count 4.35 M/mm3 (4.30-5.90)
[2021-02-18 04:44] LABS: Anion Gap 3 mmol/L (6-16); Blood Urea Nitrogen 22 mg/dL (8-24); Bun/Creatinine Ratio 42.8 (12.0-20.0); CO2, Blood 34 mmol/L (21-32); Calcium, Blood 8.2 mg/dL (8.5-10.1); Chloride, Blood 102 mmol/L (98-108); Creatinine, Blood 0.51 mg/dL (0.60-1.20); Glomerular Filtration Rate >60 (60-); Glucose, Blood 180 mg/dL (70-99); Potassium, Blood 3.2 mmol/L (3.5-5.5); Sodium, Blood 139 mmol/L (136-145)
--- NOTE | 2021-02-18 06:09 | NUR ---
LAVINIA HAS BEEN AWAKE AND AGITATED AND RESTLESS FOR THE MAJORITY OF THE NIGHT. HE HAS BEEN ON THE PROPOFOL @ 30MCG/KG, WHICH FOR THE PREVIOUS COUPLE OF NIGHTS WAS MORE THAN ENOUGH FOR HIM TO REST. HE WAS GIVEN FENTANYL X2 TONIGHT FOR RESTLESSNESS/AGITATION. HE NODDED IN AGREEMENT BOTH TIMES. HE HAS BEEN TRYING TO COMMUNICATE AND HAS BEEN UNABLE TO CONVEY WHAT HE WANTS. HE WAS ABLE TO GET AHOLD OF THE VENTILATOR TUBING ONCE, DISCONNECTING IT FROM THE MACHINE. HE IS REMINDED THAT HE CAN'T PULL OUT THAT TUBE, IT WOULD CAUSE PAIN AND DAMAGE. ATTEMPTS TO ENCOURAGE AND REASSURE HIM. VENT SETTINGS HAVE REMAINED THE SAME T/O THE SHIFT.
--- NOTE | 2021-02-18 12:41 | NUR ---
PT HAS HAD SL ANXIETY THIS AM BUT ABLE TO TALK AND ENCOURAGE PT THROUGH. PT SONDRA AND BOTTOCKS CARE DONE TO REMOVE POWDER AND THIN BLUE TOP CREAM PLACE WTHI ANTIFUNGAL POWDER MIXED IN. PT HAS SMALL R BUTTOCKS CREST SKIN BREAKDOWN THAT WAS CLEANED AND CLOVER DSG APPLIED. PT PROPOFOL IS DECREASED BUT REMAINS ON 10 MCG NOTED. PT HAS ALSO BEEN ON PC AND PS 15/5 AND IS NOW DOWN TO 8/5 WITH 300+ TV AND RR 24-26 AND GOOD SATS. PT REMAINS RESTRAINED WITH REACHING AND POSSIBLE CONFUSION ISSUES NOTED. U.O. IS NOTED ON LASIX DOSE ADN WILL FOLLOW.
--- NOTE | 2021-02-18 14:32 | NUR ---
PT TOLERATING PS 8/5 30% WELL AND ORDER TO EXTUBATE WAS GIVEN. PT TOLERATING 3L NC AND RR 20-24 W/O DISTRESS. PT SON IS IN ROOM AND PT ENJOYING VISIT. VSS AND WILL FOLLOW.
--- NOTE | 2021-02-18 15:50 | NUR ---
PT ALERT WITH SL CONFUSION. FAMILY VISITING AND PT TOLERATING 3L NC W/O DISTRESS. WILL FOLLOW.
--- NOTE | 2021-02-18 19:17 | NUR ---
PT HAS BEEN UP IN CHAIR AND RESTING WELL W/O DISTRESS. PT RAMAINS A/O AND ON O2 VIA NC AND IS ALSO TAKING PO FLUIDS FOR MEDS W/O ANY S/S OF VOICE CHANGES OR CHOKING. I/O NOTED, VSS AND SATS ARE STABLE.
--- NOTE | 2021-02-18 20:35 | NUR ---
PATIENT SITTING UP IN CHAIR WATCHING TV. A&OX3, JAMIL ATTEMPTING TO ASSIST WITH REPOSITIONING IN CHAIR. PATIENT NEEDING REMINDING THAT FOR TONIGHT HE WILL HAVE WATER WITH HIS PILLS, HAVE DIET CHANGED TOMORROW IF NO SIGN OF ASPIRATION. BIOX 97% ON 2L/NC MOIST COUGH WITH SMALL AMT OF WHITE SPUTUM. AFIB CONTINUES WITH RATE 80-90'S.
--- NOTE | 2021-02-18 22:34 | NUR ---
PATIENT ROSE PO MEDS WITH APPLESAUCE AND WATER WITHOUT DIFFICULTY. PATIENT VERBALIZED HE FELT IF THERE WAS SOMETHING IN THE BACK OF HIS THROAT AFTER BITE OF JELLO, THROAT AND TONGUE RED, NOTHING OBTAINED WITH DEEP ORAL SUCTION. CONTINUES TO ROSE WATER WITHOUT DIFFICULTY. PATIENT REF LIQUID DSS
[2021-02-19 04:47] LABS: Anion Gap 5 mmol/L (6-16); Blood Urea Nitrogen 17 mg/dL (8-24); Bun/Creatinine Ratio 37.5 (12.0-20.0); CO2, Blood 33 mmol/L (21-32); Calcium, Blood 8.4 mg/dL (8.5-10.1); Chloride, Blood 101 mmol/L (98-108); Creatinine, Blood 0.45 mg/dL (0.60-1.20); Glomerular Filtration Rate >60 (60-); Glucose, Blood 121 mg/dL (70-99); Potassium, Blood 3.4 mmol/L (3.5-5.5); Sodium, Blood 139 mmol/L (136-145)
--- NOTE | 2021-02-19 06:15 | NUR ---
SUMMARY PATIENT SLEEPING OFF AND ON T/O NIGHT, AWAKENS VERY EASILY TO SLIGHT STIMULI. A&O X3 WITH GENERALIZED WEAKNESS. NEEDING ENCOURAGEMENT TO ASSIST WITH REPOSITIONING. 2L/NC T/O NIGHT WITH BIOX 92-97%. MOIST COUGH WITH CLEAR TO WHITE SPUTUM.
[2021-02-19 10:45] LABS: Vancomycin, Trough 1.5 ug/mL (5.0-10.0)
--- NOTE | 2021-02-19 12:22 | NUR ---
REPORT TO AISHWARYA ON MEDICAL FLOOR TO ASSUME CARE.
--- NOTE | 2021-02-19 18:38 | NUR ---
SHIFT SUMMARY- PT TRANSFERED FROM ICU THIS AFTERNOON. HIS APPETITE IS POOR. HIS WAS AT BEDSIDE THIS AFTERNOON. HE WORKED WITH PT AND TOLERATED WELL. HIS BED IS IN THE LOW POSITION AND CALL LIGHT IS WITHIN REACH.
--- NOTE | 2021-02-19 22:07 | NUR ---
1951 PT LYING IN BED, REPORTS A LITTLE SOB WITH EXERTION, IS ON RA AT 95%. PT HAS REDNESS IN SONDRA AREA, IN FOLDS OF ABD, ON BOTTOM, DRESSINGS ON BOTTOM THAT ARE C/D/I. NO OTHER APPARENT SIGNS OF DISTRESS. CALL LIGHT IS IN REACH.
--- NOTE | 2021-02-20 00:41 | NUR ---
02/19/21 2342 PT LYING IN BED, EYES CLOSED, APPEARS TO BE RESTING. WAKES EASILY TO VERBAL STIMULI. NO APPARENT SIGNS OF DISTRESS. CALL LIGHT IS IN REACH.
--- NOTE | 2021-02-20 06:41 | NUR ---
0200 PT LYING IN BED, EYES CLOSED, APPEARS TO BE RESTING. BREATHING IS EVEN, UNLABORED. NO APPARENT SIGNS OF DISTRESS. CALL LIGHT IS IN REACH. 0400 PT LYING IN BED, AWAKE, NO APPARENT SIGNS OF DISTRESS. GOT PT SOME ICE WATER. DENIES NEED FOR ANYTHING ELSE AT THIS TIME. CALL LIGHT IS IN REACH.
--- NOTE | 2021-02-20 06:42 | NUR ---
PT IS AAO X 4, ON RA AT 95%. REPORTS SOB A LITTLE WITH EXERTION. BS WAS 134. TELE AFIB. REDNESS IN SONDRA AREA, ABD FOLD, BOTTOM. DRESSING ON BOTTOM C/D/I.
--- NOTE | 2021-02-20 06:43 | NUR ---
PT LYING IN BED, EYES CLOSED, APPEARS TO BE RESTING. BREATHING IS EVEN, UNLABORED. NO APPARENT SIGNS OF DISTRESS. CALL LIGHT IS IN REACH. NO OTHER CHANGES THIS SHIFT.
[2021-02-20] MEDS ORDERED: ALBU2.5V5 INH (17:28)
[2021-02-20 18:13] LABS: SARS-Cov-2 (COVID-19) PCR, MMC NEGATIVE (NEGATIVE)
--- NOTE | 2021-02-20 19:07 | NUR ---
PT DISCHARGED FROM THE UNIT. IVS REMOVED. REPORT CALLED TO CHARLY AT [facility]. LEFT VIA WHEEL CHAIR WITH [facility].
== END 2021-02-20 19:00 | DRG 870 ==
LOC: ER 08:00 → ICUW 10:47 → MEDS 02-19 12:27
PROVIDERS: Emergency Medicine; Internal Medicine; Internal Medicine Critical Care Medicine; Internal Medicine Pulmonary Disease; Nurse Practitioner Acute Care; Pharmacist; Student in an Organized Health Care Education/Training Program; ADMIT Family Medicine
PROC: 0BH18EZ Insertion of Endotracheal Airway into Trachea, Via Natural or Artificial Opening Endoscopic (ICD-10-PCS; principal; 2021-02-05)
PROC: 5A1955Z Respiratory Ventilation, Greater than 96 Consecutive Hours (ICD-10-PCS; 2021-02-05)
PROC: 3E043XZ Introduction of Vasopressor into Central Vein, Percutaneous Approach (ICD-10-PCS; 2021-02-05)
PROC: 02HV33Z Insertion of Infusion Device into Superior Vena Cava, Percutaneous Approach (ICD-10-PCS; 2021-02-05)
PROC: 5A09357 Assistance with Respiratory Ventilation, Less than 24 Consecutive Hours, Continuous Positive Airway Pressure (ICD-10-PCS; 2021-02-05)
DX: A41.3 Sepsis due to Hemophilus influenzae (principal); R65.21 Severe sepsis with septic shock; I50.31 Acute diastolic (congestive) heart failure; J96.22 Acute and chronic respiratory failure with hypercapnia; J96.21 Acute and chronic respiratory failure with hypoxia; J14 Pneumonia due to Hemophilus influenzae; J44.0 Chronic obstructive pulmonary disease with (acute) lower respiratory infection; J44.1 Chronic obstructive pulmonary disease with (acute) exacerbation; E87.2 Acidosis; I48.20 Chronic atrial fibrillation, unspecified; Z20.822 Contact with and (suspected) exposure to COVID-19; F43.10 Post-traumatic stress disorder, unspecified; E78.5 Hyperlipidemia, unspecified; E66.01 Morbid (severe) obesity due to excess calories; E11.9 Type 2 diabetes mellitus without complications; K21.9 Gastro-esophageal reflux disease without esophagitis; D72.829 Elevated white blood cell count, unspecified; R50.2 Drug induced fever; T42.6X5A Adverse effect of other antiepileptic and sedative-hypnotic drugs, initial encounter; T38.0X5A Adverse effect of glucocorticoids and synthetic analogues, initial encounter; I11.0 Hypertensive heart disease with heart failure; Z79.899 Other long term (current) drug therapy; Z79.01 Long term (current) use of anticoagulants; Z79.84 Long term (current) use of oral hypoglycemic drugs; Z68.33 Body mass index [BMI] 33.0-33.9, adult; Z88.8 Allergy status to other drugs, medicaments and biological substances; Z78.1 Physical restraint status
CPT/HCPCS: 0202U; 31500; 31720; 36415; 36556; 36600; 51702; 71045; 80048; 80053; 80069; 80202; 81001; 82803; 82947; 83605; 83735; 83880; 84100; 84132; 84145; 84484; 85025; 87040; 87070; 87077; 87185; 87205; 92526; 92610; 93005; 93010; 93306; 94002; 94003; 94640; 94644; 94660; 94667; 94668; 94760; 96374; 96375; 97110; 97163; 97166; 97530; 99285-25; A9270; C1751; C9113; J0282; J0456; J0692; J0696; J1815; J1940; J2060; J2370; J2704; J2920; J2930; J3010; J3370; J3480; J7030; J7040; J7042; J7050; J7060; J7120; U0004

== ENCOUNTER 2023-07-04 14:16 | Emergency (ER) | payer OTHER ==
[~2023-07-04] VITALS: Ht 172.7 cm; Wt 79.4 kg
[~2023-07-04 14:16] MED LIST: ALBU2.5V5 INH; ALBU90OI INH; DULERA 100 MCG/13 GM INH; ELIQUIS5 M2 PO; ERGO400 PO; GUAI600T33 PO; JARDIANCE25 MG PO; Lisinopril-Hct1 EAC4 PO; METF500 PO; METO25ER PO; STRIVERDI RESPIM4 G1 INH; ZOCOR20 MG PO
[2023-07-04] MEDS ORDERED: JARDIANCE25 MG PO (14:44)
[2023-07-04] MEDS ORDERED: ERGO400 PO (14:44)
[2023-07-04] MEDS ORDERED: ZYRTEC10 M1 PO (14:45)
[2023-07-04] MEDS ORDERED: PIOG30 PO (14:46)
[2023-07-04 15:03] LABS: BASOPHILS ABSOLUTE AUTO 0.05 K/mm3 (0.00-0.23); BASOPHILS PERCENT AUTO 0 % (0-2); EOSINOPHILS PERCENT AUTO 0 % (0-6); Hematocrit 47.3 % (37.0-53.0); Hemoglobin 15.7 g/dL (13.5-17.5); IMMATURE GRAN PERCENT AUTO 1 % (0-1); LYMPHOCYTES ABSOLUTE AUTO 1.12 K/mm3 (0.84-5.20); LYMPHOCYTES PERCENT AUTO 7 % (21-46); MONOCYTES ABSOLUTE AUTO 1.17 K/mm3 (0.16-1.47); MONOCYTES PERCENT AUTO 7 % (4-13); Mean Corpuscular HGB Conc 33.2 g/dL (31.5-36.5); Mean Corpuscular Volume 96 fL (80-100); Mean Platelet Volume 10.8 fL (9.1-12.4); NEUTROPHILS ABSOLUTE AUTO 14.07 K/mm3 (1.96-9.15); NEUTROPHILS PERCENT AUTO 85 % (41-73); Platelet Count 209 K/mm3 (150-400); RDW Coefficient Variation 13.9 % (11.7-14.2); RDW Standard Deviation 49.6 fL (35.1-46.3); Red Blood Cell Count 4.91 M/mm3 (4.30-5.90); White Blood Cell Count 16.51 K/mm3 (4.00-11.30)
[2023-07-04 15:25] LABS: Albumin, Blood 2.9 g/dL (3.4-5.0); Albumin/Globulin Ratio 0.5 (0.8-1.8); Bun/Creatinine Ratio 20.6 (12.0-20.0); Creatinine, Blood 0.58 mg/dL (0.60-1.20); Globulin, Blood 5.3 g/dL (2.2-4.0); Potassium, Blood 3.8 mmol/L (3.5-5.5); Total Protein, Blood 8.2 g/dL (6.4-8.2)
[2023-07-04 17:00] VITALS: BP 112/66
[2023-07-04] MEDS ORDERED: Robaxin750 MG PO (17:02)
[2023-07-04] MEDS ORDERED: CODACE30 PO (17:02)
[2023-07-04] MEDS ORDERED: AMOCLA875 PO (17:02)
== END 2023-07-04 17:15 | disposition home or self-care (01) ==
LOC: ER 14:16
PROVIDERS: Emergency Medicine
DX: S29.012A Strain of muscle and tendon of back wall of thorax, initial encounter (principal); J18.9 Pneumonia, unspecified organism; I48.91 Unspecified atrial fibrillation; J44.9 Chronic obstructive pulmonary disease, unspecified; F43.10 Post-traumatic stress disorder, unspecified; F17.200 Nicotine dependence, unspecified, uncomplicated; K21.9 Gastro-esophageal reflux disease without esophagitis; I10 Essential (primary) hypertension; E11.9 Type 2 diabetes mellitus without complications; Z53.29 Procedure and treatment not carried out because of patient's decision for other reasons; Z79.899 Other long term (current) drug therapy; Z79.01 Long term (current) use of anticoagulants; Z79.84 Long term (current) use of oral hypoglycemic drugs; X58.XXXA Exposure to other specified factors, initial encounter
CPT/HCPCS: 71045; 80053; 84484; 85025; 93005; 93010; 96374; 96375; 99285-25; A9270; J2270; J2405

== ENCOUNTER 2024-02-14 20:30 | Emergency (ER) | payer OTHER ==
[~2024-02-14] VITALS: Ht 172.7 cm; Wt 68.0 kg
[~2024-02-14 20:30] MED LIST changes: +AMOCLA875 PO; +CODACE30 PO; +PIOG30 PO; +Robaxin750 MG PO; +ZYRTEC10 M1 PO
[2024-02-14 20:53] LABS: BASOPHILS ABSOLUTE AUTO 0.04 K/mm3 (0.00-0.23); BASOPHILS PERCENT AUTO 1 % (0-2); EOSINOPHILS PERCENT AUTO 0 % (0-6); Hematocrit 29.6 % (37.0-53.0); Hemoglobin 9.6 g/dL (13.5-17.5); IMMATURE GRAN ABSOLUTE AUTO 0.11 K/mm3 (0.00-0.10); IMMATURE GRAN PERCENT AUTO 1 % (0-1); LYMPHOCYTES ABSOLUTE AUTO 0.78 K/mm3 (0.84-5.20); LYMPHOCYTES PERCENT AUTO 9 % (21-46); MONOCYTES ABSOLUTE AUTO 0.51 K/mm3 (0.16-1.47); MONOCYTES PERCENT AUTO 6 % (4-13); Mean Corpuscular HGB 33.9 pg (26.0-34.0); Mean Corpuscular HGB Conc 32.4 g/dL (31.5-36.5); Mean Corpuscular Volume 105 fL (80-100); Mean Platelet Volume 10.6 fL (9.1-12.4); NEUTROPHILS PERCENT AUTO 84 % (41-73); NRBC ABSOLUTE 0.02 K/mm3 (0.00-0.02); NRBC Auto 0.2 /100 WBC (0.0-0.2); Platelet Count 322 K/mm3 (150-400); RDW Coefficient Variation 24.1 % (11.7-14.2); RDW Standard Deviation 89.1 fL (35.1-46.3); Red Blood Cell Count 2.83 M/mm3 (4.30-5.90); White Blood Cell Count 8.84 K/mm3 (4.00-11.30)
[2024-02-14] MEDS ORDERED: ACYC400 PO (20:56)
[2024-02-14] MEDS ORDERED: ALLO300 PO (20:56)
[2024-02-14] MEDS ORDERED: KYPROLIS10 MG IV (20:57)
[2024-02-14] MEDS ORDERED: DIGOX125 MC1 PO (20:58)
[2024-02-14] MEDS ORDERED: FURO40 PO (20:59)
[2024-02-14] MEDS ORDERED: NICO21TP TOP (21:00)
[2024-02-14] MEDS ORDERED: Revlimid25 MG PO (21:00)
[2024-02-14] MEDS ORDERED: IPRAT-ALBUT 0.5-3 ML (21:00)
[2024-02-14] MEDS ORDERED: Ondansetron Odt8 MG PO (21:01)
[2024-02-14] MEDS ORDERED: NICO2 PO (21:01)
[2024-02-14] MEDS ORDERED: VERA180ERB (21:02)
[2024-02-14 21:05] LABS: Albumin, Blood 2.5 g/dL (3.4-5.0); Bilirubin, Total 0.5 mg/dL (0.1-1.0); Bun/Creatinine Ratio 26.6 (12.0-20.0); Calcium, Blood 7.1 mg/dL (8.5-10.1); Creatinine, Blood 0.56 mg/dL (0.60-1.20); Globulin, Blood 2.4 g/dL (2.2-4.0); Potassium, Blood 4.2 mmol/L (3.5-5.5); Total Protein, Blood 4.9 g/dL (6.4-8.2)
[2024-02-14] MEDS ORDERED: Nicotine 14 MG PATCH TOP ONE (21:10)
[2024-02-14 21:41] LABS: Magnesium, Blood 1.1 mg/dL (1.6-2.4)
[2024-02-14] MEDS ORDERED: Magnesium Sulf 2 GM/Water 50ML 50 ML IV ONE (21:45)
[2024-02-14] MEDS ORDERED: CALCIUM GLUC IN NACL, ISO-OSM 50 ML IV ONE (21:45)
[2024-02-14] MEDS ORDERED: MAGCHL64ER PO (23:16)
[2024-02-15] VITALS: BP 118/54
== END 2024-02-15 00:16 | disposition home or self-care (01) ==
LOC: ER 20:30
PROVIDERS: Emergency Medicine
DX: E83.42 Hypomagnesemia (principal); E83.51 Hypocalcemia; I48.91 Unspecified atrial fibrillation; Z88.8 Allergy status to other drugs, medicaments and biological substances; Z79.899 Other long term (current) drug therapy; Z79.84 Long term (current) use of oral hypoglycemic drugs; J44.9 Chronic obstructive pulmonary disease, unspecified; F43.10 Post-traumatic stress disorder, unspecified; E11.9 Type 2 diabetes mellitus without complications; I11.0 Hypertensive heart disease with heart failure; I50.9 Heart failure, unspecified; E78.5 Hyperlipidemia, unspecified; F17.200 Nicotine dependence, unspecified, uncomplicated
CPT/HCPCS: 71045; 80053; 83735; 83880; 84484; 85025; 93005; 93010; 96365; 96366; 96375; 99285-25; A9270; J0612; J3475

== ENCOUNTER 2024-03-04 03:07 | Emergency (ER) | payer OTHER ==
[~2024-03-04] VITALS: Ht 172.7 cm; Wt 65.8 kg
[~2024-03-04 03:07] MED LIST changes: +ACYC400 PO; +ALLO300 PO; +DIGOX125 MC1 PO; +FURO40 PO; +IPRAT-ALBUT 0.5-3 ML; +KYPROLIS10 MG IV; +MAGCHL64ER PO; +NICO2 PO; +NICO21TP TOP; +Ondansetron Odt8 MG PO; +Revlimid25 MG PO; +VERA180ERB
[2024-03-04 03:41] LABS: BASOPHILS PERCENT AUTO 0 % (0-2); EOSINOPHILS PERCENT AUTO 0 % (0-6); Hematocrit 28.5 % (37.0-53.0); Hemoglobin 9.3 g/dL (13.5-17.5); Mean Corpuscular HGB 33.3 pg (26.0-34.0); Mean Corpuscular HGB Conc 32.6 g/dL (31.5-36.5); Mean Corpuscular Volume 102 fL (80-100); Mean Platelet Volume 12.4 fL (9.1-12.4); Platelet Count 57 K/mm3 (150-400); RDW Coefficient Variation 20.7 % (11.7-14.2); RDW Standard Deviation 76.6 fL (35.1-46.3); Red Blood Cell Count 2.79 M/mm3 (4.30-5.90); White Blood Cell Count 1.08 K/mm3 (4.00-11.30)
[2024-03-04 03:50] LABS: IMMATURE GRAN ABSOLUTE AUTO 0.01 K/mm3 (0.00-0.10); IMMATURE GRAN PERCENT AUTO 1 % (0-1); LYMPHOCYTES ABSOLUTE AUTO 0.33 K/mm3 (0.84-5.20); LYMPHOCYTES PERCENT AUTO 31 % (21-46); MONOCYTES PERCENT AUTO 19 % (4-13); NEUTROPHILS ABSOLUTE AUTO 0.54 K/mm3 (1.96-9.15); NEUTROPHILS PERCENT AUTO 50 % (41-73)
[2024-03-04 03:54] LABS: Albumin, Blood 2.6 g/dL (3.4-5.0); Bun/Creatinine Ratio 40.8 (12.0-20.0); Calcium, Blood 8.3 mg/dL (8.5-10.1); Creatinine, Blood 0.47 mg/dL (0.60-1.20); Globulin, Blood 2.7 g/dL (2.2-4.0); Potassium, Blood 3.9 mmol/L (3.5-5.5); Total Protein, Blood 5.3 g/dL (6.4-8.2)
[2024-03-04 04:30] VITALS: BP 127/66
[2024-03-08] MEDS ORDERED: LEVO750 PO (15:05)
[2024-03-08] MEDS ORDERED: FURO20 PO (15:05)
== END 2024-03-04 05:31 | disposition left against medical advice (07) ==
LOC: ER 03:07
PROVIDERS: Emergency Medicine
DX: R06.02 Shortness of breath (principal); D72.819 Decreased white blood cell count, unspecified; D64.9 Anemia, unspecified; J44.9 Chronic obstructive pulmonary disease, unspecified; I48.91 Unspecified atrial fibrillation; F43.10 Post-traumatic stress disorder, unspecified; E11.9 Type 2 diabetes mellitus without complications; K21.9 Gastro-esophageal reflux disease without esophagitis; I11.9 Hypertensive heart disease without heart failure; I50.9 Heart failure, unspecified; E78.5 Hyperlipidemia, unspecified; F17.200 Nicotine dependence, unspecified, uncomplicated; Z79.84 Long term (current) use of oral hypoglycemic drugs; Z95.0 Presence of cardiac pacemaker; Z79.899 Other long term (current) drug therapy; Z88.8 Allergy status to other drugs, medicaments and biological substances
CPT/HCPCS: 71046; 71260; 80053; 83605; 84145; 85025; 87040; 93005; 93010; 99285-25; Q9967

== ENCOUNTER 2024-03-11 23:57 | Observation (INO) | payer OTHER ==
[~2024-03-11] VITALS: Ht 177.8 cm; Wt 72.6 kg
[~2024-03-11 23:57] MED LIST changes: +FURO20 PO; +LEVO750 PO
[2024-03-12] MEDS ORDERED: Morphine Sulfate 4 MG/1 ML Injection IV ONE (00:45)
[2024-03-12] MEDS ORDERED: Morphine Sulfate 20 MG/1ML 1 ML Oral Syringe PO ONE (00:55)
[2024-03-12] MEDS ORDERED: Atropine Sulfate 1% Opth Soln 2ML BTL SL PRN (02:10)
[2024-03-12] MEDS ORDERED: Acetaminophen 160MG / 5ML 10.15 UDC PO PRN (02:10)
[2024-03-12] MEDS ORDERED: LORazepam 1 MG Tab PO PRN (02:10)
[2024-03-12] MEDS ORDERED: Morphine Sulfate 10 MG/ML 1MLSYR INH PRN (02:10)
[2024-03-12 03:24] VITALS: BP 122/72
[2024-03-12] MEDS ORDERED: Tylenol W/Code120 ML PO (14:47)
[2024-03-12] MEDS ORDERED: ATROPINE S0.4 MG/1 M SL (15:02)
[2024-03-12] MEDS ORDERED: Ativan1 MG PO (15:03)
[2024-03-12] MEDS ORDERED: MORP20L PO (15:04)
--- NOTE | 2024-03-12 15:49 | NUR ---
DISCHARGE NOTE PATIENT A/OX4 THIS SHIFT, ABLE TO MAKE NEEDS KNOWN. INCONTINENT OF URINE, ATTENDS IN PLACE. DRESSING TO SACRAL WOUND CHANGED. DISCHARGE DOCUMENTATION COMPLETED, , TREY, CHILDREN, AND GRANDCHILDREN AT BEDSIDE AT TIME OF DISCHARGE. DISCHARGE EDUCATION PROVIDED. REPORT GIVEN TO NIKOLAI AT [facility]. PATIENT LEFT FACILITY WITH FAMILY AND ALL BELONGINGS IN [facility]. [employer] SENT WITH TRANSPORTATION STAFF IN [place]. NO OTHER CONCERNS AT THIS TIME.
== END 2024-03-12 15:42 | disposition home or self-care (01) ==
LOC: ER 23:57 → MEDS 23:58
PROVIDERS: ADMIT Student in an Organized Health Care Education/Training Program
DX: Z51.5 Encounter for palliative care (principal); C96.9 Malignant neoplasm of lymphoid, hematopoietic and related tissue, unspecified; C79.9 Secondary malignant neoplasm of unspecified site; I48.0 Paroxysmal atrial fibrillation; E11.9 Type 2 diabetes mellitus without complications; J44.9 Chronic obstructive pulmonary disease, unspecified; I11.0 Hypertensive heart disease with heart failure; I50.9 Heart failure, unspecified; E43 Unspecified severe protein-calorie malnutrition; F17.200 Nicotine dependence, unspecified, uncomplicated; Z66 Do not resuscitate; Z95.0 Presence of cardiac pacemaker; Z99.81 Dependence on supplemental oxygen; Z68.23 Body mass index [BMI] 23.0-23.9, adult; Z88.8 Allergy status to other drugs, medicaments and biological substances; Z79.01 Long term (current) use of anticoagulants; Z79.84 Long term (current) use of oral hypoglycemic drugs; Z79.899 Other long term (current) drug therapy
CPT/HCPCS: 99285; A9270; G0378; J2270